=== PATIENT | male | born 1940 | race Caucasian/White ===

== ENCOUNTER → 2018-10-05 09:01 | Outpatient (CLI) | payer MEDICARE, OTHER, SELFPAY ==
[2018-10-07 13:32] LABS: Free Kappa Light Chain 18.3 mg/L (3.3-19.4); Free Kappa/ Lambda Ratio 1.16 (0.26-1.65); Free Lambda 15.8 mg/L (5.7-26.3)
[2018-10-08 21:25] LABS: Alpha 1 Globulin 0.2 g/dL (0.2-0.3); Alpha 2 Globulin 0.8 g/dL (0.5-0.9); Beta 1 Globulin 0.5 g/dL (0.4-0.6)
== END ==
PROVIDERS: Family Provider Family Medicine; PCP Family Medicine; Visit Provider Internal Medicine Cardiovascular Disease
DX: Z86.79 Personal history of other diseases of the circulatory system (principal); I51.7 Cardiomegaly
CPT/HCPCS: 36415; 83883; 84155; 84165

== ENCOUNTER 2019-06-03 23:03 | Observation (INO) | payer MEDICARE, OTHER, SELFPAY ==
[2019-06-03 23:30] VITALS: BP 156/65; PULSE 54; RESP 16; TEMP 36.3; O2SAT 99; BMI 33.7
[2019-06-04] VITALS (18 sets, daily range): BP systolic 112–146; BP diastolic 45–64; PULSE 48–75; RESP 9–18; TEMP 36.4–37.2; O2SAT 89–96; BMI 33.7
--- NOTE | 2019-06-04 | PATH_ITS ---
[facility] Accession Number: [id number] . 01 Material submitted: . gallbladder - GALLBLADDER AND CONTENTS . 01 Clinical history: . ABDOMINAL PAIN . 02 Diagnosis: Gallbladder, Cholecystectomy: Active cholecystitis with cholelithiasis. Negative for dysplasia and malignancy. [facility] 06/08/2019 1034 Local . 02 Electronically signed: . Krystina Rich MD, Pathologist NPI- [id number] . 01 Gross description: . Received in formalin, labeled gallbladder and contents, is an opened gallbladder (length-8.2 cm, diameter-3.8 cm) with marcos-green smooth shiny serosa and a patent cystic duct. No lymph nodes are identified. The lumen contains brown-green watery bile and a dark green, gritty, friable calculus (0.7 x 0.6 0.4 cm). The mucosa is green, smooth, and flat. The wall is up to 0.1 cm thick. No nodules, masses, or lesions are identified. Section Code: (A1) cystic duct resection margin and two serial sections from the body; (A2) two longitudinal sections from the fundus. ([id number]) /[facility] 06/07/2019 1208 Local . 02 Pathologist provided ICD-10: K81.0, K80.60 . 02 CPT . 901617 Performed at: 01 [facility] [address], [place], [place] [id number] MD Garth Lomax MD Phone: [phone] [facility]formed at: [facility] [address] [place], [place] [id number] MD Krystina Rich MD Phone: [phone]
--- NOTE | 2019-06-04 00:30 | ED_ITS ---
HPI - Abdominal Pain General Chief Complaint: Abdominal Pain Stated Complaint: abdominal pain Time Seen by Provider: 06/04/19 00:30 Source: patient and family Mode of arrival: Ambulatory Limitations: no limitations History of Present Illness HPI narrative: [age] year year old male nonsmoker with history of hy pertension presents with a chief complaint of a relatively sudden onset epigastric discomfort this evening at just before 8:00 p.m.. He had eaten about 1 hour before. He states his pain largely stays in the mid to upper abdomen and is worsened with motion and improves with rest. He has nausea but denies any vomiting. Patient denies any history of the same. He denies any recent injury. He has had no trouble with urination. MD complaint: abdominal pain Onset (ago): hour(s) Pain Consistency: constant Location: diffuse Severity: moderate Quality: cramping and aching Relieving factors: rest Exacerbating factors: movement Associated symptoms: nausea Related Data Home Medications Medication Instructions Recorded Confirmed [centrum silver] 1 tab PO Q DAY #0 08/11/12 aspirin 162 mg PO QDAY #0 08/11/12 atorvastatin [Lipitor] 10 mg PO HS #0 08/11/12 cimetidine 400 mg PO BID #0 08/11/12 omeprazole 40 mg PO QDAY #0 08/11/12 sildenafil [Viagra] 50 mg PO PRN #0 08/11/12 tadalafil [Cialis] 20 mg PO PRN #0 08/11/12 telmisartan [Micardis] 80 mg PO Q DAY #0 08/11/12 Allergies Allergy/AdvReac Type Severity Reaction Status Date / Time No Known Drug Allergies Allergy Verified 06/03/19 23:36 Review of Systems Constitutional Constitutional: Denies chills, Denies fatigue, Denies fever(s), Denies frequent falls, Denies lethargy and Denies weakness Eyes Eyes: Denies change in vision, Denies eye discharge, Denies irritation and Denies loss of vision ENT Ears, Nose, Mouth, and Throat: Denies change in voice, Denies dizziness, Denies neck pain, Denies sore throat and Denies throat swelling Cardiovascular Cardiovascular: Denies chest pain, Denies irregular heart rhythm, Denies lightheadedness, Denies palpitations, Denies dyspnea, Denies dyspnea on exertion and Denies orthopnea Respiratory Respiratory: Denies cough, Denies dyspnea, Denies dyspnea on exertion and Denies wheezing Gastrointestinal Gastrointestinal: Reports abdominal pain, Denies change in bowel habits, Denies diarrhea, Reports nausea and Denies vomiting Genitourinary Genitourinary: Denies hematuria, Denies flank pain, Denies urinary incontinence and Denies urinary urgency Musculoskeletal Musculoskeletal: Denies back pain, Denies muscle weakness, Denies neck pain, Denies numbness and Denies tingling Integumentary/Breasts Skin/Breast: Denies pruritus, Denies erythema, Denies rash and Denies wounds Neurologic Neurologic: Denies behavioral changes, Denies confusion, Denies dizziness, Denies frequent falls, Denies loss of vision, Denies numbness, Denies tingling and Denies weakness Psychiatric Psychiatric: Denies anxiety, Denies behavioral changes, Denies confusion, Denies depression, Denies homicidal ideation and Denies suicidal ideation Endocrine Endocrine: Denies fatigue, Denies flushing and Denies palpitations Hematologic/Lymphatic Hematologic/Lymphatic: Denies easy bruising Allergic/Immunologic Allergic/Immunologic: Denies urticaria, Denies throat swelling and Denies wheezing Patient History Social History Smoking Status: Never smoker Smoking Status: Never smoker alcohol intake frequency: 0-2 drinks per day Substance Use Type: does not use Exam Narrative Exam Narrative: GENERAL: [79] year old patient appears stated age. Well- nourished, well-developed patient, in mild distress. HEAD: Atraumatic. Normocephalic. EYES: Pupils equal round and reactive. Extraocular motions intact. No scleral icterus. No injection or drainage. ENT: Nose without bleeding, purulent drainage. Throat without erythema, tonsillar hypertrophy or exudate. Airway patent. NECK: Trachea midline. Non tender CARDIOVASCULAR: Regular rate and rhythm without murmurs, gallops, or rubs. RESPIRATORY: Clear to auscultation. Breath sounds equal bilaterally. No wheezes, rales, or rhonchi. GASTROINTESTINAL: Abdomen soft, tender in the periumbilical and epigastric region, nondistended. EXTREMITIES: No edema or joint tenderness. BACK: Nontender without deformity or crepitance. No flank tenderness. NEURO: AOx3. SKIN: No rash or erythema of visible areas Initial Vital Signs Initial Vital Signs: Vital Signs Temperature 97.3 F L 06/03/19 23:30 Pulse Rate 54 L 06/03/19 23:30 Respiratory Rate 16 06/03/19 23:30 Blood Pressure 156/65 H 06/03/19 23:30 Pulse Oximetry 99 06/03/19 23:30 Course Orders Ordered: ED Orders 06/04/19 00:27 EKG-12 Lead Stat 06/04/19 00:38 XR acute abdomen series Stat 06/04/19 01:27 CT abdomen pelvis w con Stat 06/04/19 01:45 Complete Blood Count AUTO DIFF Stat Comprehensive Metabolic Panel Stat Lipase Stat Partial Thromboplastin Time Stat Prothrombin Time INR Stat 06/04/19 03:37 US abdomen limited Stat Ondansetron HCl (Zofran) 4 mg IV Q4HR PRN PRN Reason: Nausea And Vomiting Last Admin: 06/04/19 04:21 Dose: 4 mg Documented by: Admin: 06/04/19 02:51 Dose: 4 mg Documented by: LORENZO Discontinued Medications Hydromorphone HCl (Dilaudid) 0.5 mg IV NOW ONE Stop: 06/04/19 02:47 Last Admin: 06/04/19 02:51 Dose: 0.5 mg Documented by: LORENZO Hydromorphone HCl (Dilaudid) 0.5 mg IV NOW ONE Stop: 06/04/19 04:15 Last Admin: 06/04/19 04:21 Dose: 0.5 mg Documented by: WENDY Vital Signs Vital signs: Vital Signs - 8 hr 06/03/19 23:30 06/04/19 03:00 Temperature 97.3 F L Pulse Rate 54 L 50 L Respiratory Rate 16 18 Blood Pressure 156/65 H Blood Pressure [Left Arm] 132/60 Pulse Oximetry 99 95 MDM - Abdominal Pain Lab Data Result diagrams: 06/04/19 01:45 06/04/19 01:45 Labs: Lab Results 06/04/19 06/04/19 06/04/19 Range/Units 01:45 01:45 01:45 WBC 12.8 H (4.5-11.0) X10^3/uL RBC 4.74 (4.5-5.9) X10^6/uL Hgb 13.8 (13.5-17.5) g/dL Hct 41.1 (41-53) % MCV 86.7 (80-100) fL MCH 29.2 (26-34) PG MCHC 33.7 (30-36) % RDW 13.7 (11.6-14.8) % Plt Count 155 (150-400) X10^3/uL Neut % (Auto) 87.6 H (50-75) % Lymph % (Auto) 6.4 L (25-40) % [place] % (Auto) 5.4 (3-14) % Eos % (Auto) 0.1 L (2-4) % Baso % (Auto) 0.5 (0-2) % Neut # (Auto) 61244 H (6722-7680) /uL Lymph # (Auto) 800 L (9972-1443) /uL [place] # (Auto) 700 (0-900) /uL Eos # (Auto) 0 (0-450) /uL Baso # (Auto) 100 (0-100) /uL PT 11.7 (10.1-12.7) SECONDS INR 1.0 (0.9-1.3) APTT 34 (26.4-36.2) SECONDS Sodium 140 (137-145) mmol/L Potassium 4.3 (3.4-5.1) mmol/L Chloride 103 (98-107) mmol/L Carbon Dioxide 27 (22-32) mmol/L BUN 27 H (9-20) mg/dL Creatinine 0.90 (0.66-1.25) mg/dL Estimated GFR > 60.0 (>60) mL/min BUN/Creatinine Ratio 30.0 H (6-22) Glucose 178 H (80-110) mg/dL Calcium 9.5 (8.4-10.2) mg/dL Total Bilirubin 0.8 (0.2-1.3) mg/dL AST 299 H (17-59) IU/L ALT 121 H (<50) IU/L Alkaline Phosphatase 95 (38-126) U/L Total Protein 7.6 (6.3-8.2) g/dL Albumin 4.3 (3.5-5.0) g/dL Globulin 3.3 (1.7-4.1) g/dL Albumin/Globulin Ratio 1.3 (1.0-2.8) Lipase 108 (23-300) U/L Imaging Data Abdominal x-ray: Attestation: I personally reviewed and interpreted this imaging study as follows: My Impression: Nonobstructive CT scan - abdomen/pelvis: Radiologist's Impression: GB neck stone US - abdomen: Radiologist's Impression: stone in neck of GB, no thickened wall or sludge Discharge Plan Departure Patient Disposition: Admitted As Inpatient Clinical Impression: Gall stone Admit Date/Time: 06/04/19 04:15 Admit Provider: Bob Younger
--- NOTE | 2019-06-04 00:38 | DI.RAD.S_ITS ---
PROCEDURE: XR ACUTE ABDOMEN SERIES INDICATIONS: Abdominal pain TECHNIQUE: One view chest and two views of the abdomen were acquired. COMPARISON: [facility], CT, CT ABDOMEN PELVIS W CON, 06/04/2019, 2:16. [facility], CR, CHEST 1 VIEW, 08/10/2012, 19:53. FINDINGS: Surgical changes and devices: None. Chest: Lungs are clear. Heart size is normal. No pleural effusions. No pneumoperitoneum. Abdomen: Bowel gas pattern is normal. No suspicious calcifications. Visualized solid organ contours appear normal. Bones: No suspicious bony lesions. S-shaped scoliotic curvature is seen. Age-appropriate bony degenerative changes are seen. IMPRESSION: A nonobstructive bowel gas pattern is seen. Note: No significant discrepancy from the preliminary report. Dictated by: Palmer Ludwig M.D. on 06/04/2019 at 9:16 Approved by: Palmer Ludwig M.D. on 06/04/2019 at 9:17
--- NOTE | 2019-06-04 01:27 | DI.CT.S_ITS ---
PROCEDURE: CT ABDOMEN PELVIS W CON INDICATIONS: severe abdominal pain TECHNIQUE: After the administration of intravenous contrast, 5 mm thick sections acquired from the diaphragm to the symphysis. 5 mm coronal and sagittal reformats were acquired. For radiation dose reduction, the following was used: automated exposure control, adjustment of mA and/or kV according to patient size. COMPARISON: [facility], CR, XR ACUTE ABDOMEN SERIES, 06/04/2019, 0:41. [facility], US, US ABDOMEN LIMITED, 06/04/2019, 3:45. FINDINGS: Image quality: Excellent. ABDOMEN: Lung bases: Lung bases are clear. Heart size is normal. There is a moderate hiatal hernia. Solid organs: Liver is normal in size and enhancement. Low-density liver lesions are seen, which are likely related to cysts or hemangiomas. Gallbladder demonstrates a gallstone within its neck, as on series 2 image 21. Biliary system is non dilated. Pancreas enhances normally. Spleen is normal in size and enhancement. Incidental note is made of an accessory spleen along the anterior aspect of the primary spleen. No adrenal nodules. Kidneys demonstrate normal size and enhancement, without hydronephrosis. There is a water density right mid kidney cyst that measures 4 cm. Peritoneum and bowel: Bowel loops demonstrate normal wall thickness and caliber. No free fluid or air. Nodes and vessels: No retroperitoneal or mesenteric adenopathy by size criteria. Aorta and inferior vena cava are normal in size. Miscellaneous: No ventral hernias. PELVIS: Genitourinary: Bladder wall thickness is normal. Miscellaneous: No inguinal hernias or adenopathy. Bones: No suspicious bony lesions. No vertebral body compression fractures. Mild levoconvex scoliotic curvature is noted. Age-appropriate bony degenerative changes are seen. IMPRESSION: There is a stone seen within the gallbladder neck. Incidental note is made of: Moderate hiatal hernia Simple appearing right renal cyst Likely liver cysts or hemangiomas Levoconvex scoliotic curvature Note: No significant discrepancy from the preliminary report. Dictated by: Palmer Ludwig M.D. on 06/04/2019 at 8:56 Transcribed by: DEYSI on 06/04/2019 at 9:02 Approved by: Palmer Ludwig M.D. on 06/04/2019 at 9:36
[2019-06-04 02:04] LABS: Add Manual Diff / Slide Review NO; Basophils Absolute Auto 100 /uL (0-100); Basophils Percent Auto 0.5 % (0-2); Eosinophils Absolute Auto 0 /uL (0-450); Eosinophils Percent Auto 0.1 % (2-4); Hematocrit 41.1 % (41-53); Hemoglobin 13.8 g/dL (13.5-17.5); Lymphocytes Absolute Auto 800 /uL (1100-4500); Lymphocytes Percent Auto 6.4 % (25-40); Mean Corpuscular HGB Conc 33.7 % (30-36); Mean Corpuscular Hemoglobin 29.2 PG (26-34); Mean Corpuscular Volume 86.7 fL (80-100); Monocytes Absolute Auto 700 /uL (0-900); Monocytes Percent Auto 5.4 % (3-14); Neutrophils Absolute Auto 11200 /uL (1500-7000); Neutrophils Percent Auto 87.6 % (50-75); Platelet Count 155 X10^3/uL (150-400); Red Blood Cell Count 4.74 X10^6/uL (4.5-5.9); Red Cell Distribution Width 13.7 % (11.6-14.8); White Blood Cell Count 12.8 X10^3/uL (4.5-11.0)
[2019-06-04 02:06] LABS: Prothrombin Time 11.7 SECONDS (10.1-12.7)
[2019-06-04 02:09] LABS: Alanine Aminotransferase 121 IU/L (<50); Albumin 4.3 g/dL (3.5-5.0); Albumin Globulin Ratio 1.3 (1.0-2.8); Alkaline Phosphatase 95 U/L (38-126); Aspartate Aminotransferase 299 IU/L (17-59); Bilirubin Total 0.8 mg/dL (0.2-1.3); Blood Urea Nitrogen 27 mg/dL (9-20); Calcium 9.5 mg/dL (8.4-10.2); Carbon Dioxide 27 mmol/L (22-32); Chloride 103 mmol/L (98-107); Estimated Glomerular Filt Rate > 60.0 mL/min (>60); Globulin 3.3 g/dL (1.7-4.1); Glucose 178 mg/dL (80-110); HEMOLYSIS < 15 (0-50); Lipase 108 U/L (23-300); PTT Partial Thromboplastin Tim 34 SECONDS (26.4-36.2); Potassium 4.3 mmol/L (3.4-5.1); Sodium 140 mmol/L (137-145); Total Protein 7.6 g/dL (6.3-8.2)
[2019-06-04] MEDS: HYDROMORPHONE 0.5 MG INJ IV ×2 (02:51→04:21)
[2019-06-04] MEDS: ONDANSETRON 4 MG/2 ML INJ IV ×2 (02:51→04:21)
--- NOTE | 2019-06-04 03:37 | DI.US.S_ITS ---
PROCEDURE: US ABDOMEN LIMITED INDICATIONS: RIGHT UPPER QUADRANT PAIN TECHNIQUE: Real-time focused scanning was performed of the abdomen, with image documentation. COMPARISON: [facility], CR, XR ACUTE ABDOMEN SERIES, 06/04/2019, 0:41. [facility], CT, CT ABDOMEN PELVIS W CON, 06/04/2019, 2:16. FINDINGS: The liver is normal in size and demonstrates no focal lesions. The liver is not well-seen, secondary to overlying bowel gas. There is a 1 cm stone seen lodged within the gallbladder neck. The gallbladder wall is not thickened, measuring 3 mm or less. No specific pericholecystic fluid is seen. The sonographic Howard sign is negative. There is no biliary dilatation, the common bile duct measures 5 mm. The pancreas is not seen. IMPRESSION: There is a 1 cm stone seen lodged gallbladder neck. No additional sonographic signs of cholecystitis are seen. No biliary dilatation. Note: No significant discrepancy from the preliminary report. Dictated by: Palmer Ludwig M.D. on 06/04/2019 at 9:37 Approved by: Palmer Ludwig M.D. on 06/04/2019 at 9:39
[2019-06-04 04:45] LABS: Bacteria Urine None Seen; RBC Urine None Seen (0-5/HPF); WBC Urine None Seen (0-5/HPF)
[2019-06-04 04:56] LABS: Bilirubin Urine UA NEGATIVE (NEGATIVE); Color Urine UA YELLOW; Glucose Urine UA TRACE g/dL (Negative); Ketones Urine UA TRACE (NEGATIVE); Leukocyte Esterase Urine UA NEGATIVE (NEGATIVE); Nitrite Urine UA NEGATIVE (Negative); Occult Blood Urine UA TRACE-INTACT (Negative); Protein Urine UA NEGATIVE (Negative); Specific Gravity Urine UA 1.025 (1.000-1.035); Urobilinogen Urine UA 0.2 E.U./dL (0.2)
[2019-06-04] MEDS: CEFOTETAN 1 GM/50 ML PIGGYBACK IV (05:00)
[2019-06-04] MEDS: SODIUM CHLORIDE 0.9% 1,000 ML 125 ML IV (05:01)
[2019-06-04 05:18] LABS: Appearance Urine UA CLOUDY
[2019-06-04 05:19] LABS: Amorphous Sediment Urine 4+
[2019-06-04 05:20] LABS: Culture Indicated Urine Cult Not Indicated
--- NOTE | 2019-06-04 06:44 | PC.NURSE ---
Pt to room 206 via stretcher from ER. Pt able to transfer to bed independently. S.O. Ly at the bedside. Pt denies pain or nausea at this time. Pt oriented to room, call light, bed controls and tv controls. Admission done. IVF infusing as ordered. Pt denies needs at this time.
[2019-06-04] MEDS: LACTATED RINGERS 1,000 ML 42 ML IV (09:00)
--- NOTE | 2019-06-04 09:02 | P.HP_ITS ---
History of Present Illness History of Present Illness Date Patient Seen: 06/04/19 Time Patient Seen: 09:02 Chief complaint: abdominal pain Patient History Medical History (Updated 06/04/19 @ 05:45 by Yoanna Baeza RN) Acid reflux (Acute) Cataract (Acute) Hiatal hernia (Acute) High blood pressure (Acute) High cholesterol (Acute) Sleep apnea (Acute) Squamous cell carcinoma (Acute) Surgical History (Updated 06/04/19 @ 05:45 by Yoanna Baeza RN) History of sinus surgery (Acute) History of uvulopalatopharyngoplasty (Acute) Family & Social History Social History: household members significant other Prior Living Arrangements House Safety & Behavioral: Feels Safe in Current Yes Environment Been Physically Hurt or No Threatened By a Person Suicidal Ideation Description None Suicide Plan Description No Plan Tobacco & Substance use: Smoking Status Never smoker alcohol intake current alcohol intake frequency 0-2 drinks per day Substance Use Type does not use Meds Home Medications and Allergies Home Medications Medication Instructions Recorded Confirmed Type [centrum silver] 1 tab PO Q DAY #0 08/11/12 06/04/19 History aspirin 81 mg PO BID #0 08/11/12 06/04/19 History atorvastatin [Lipitor] 10 mg PO HS #0 08/11/12 06/04/19 History cimetidine 400 mg PO BID #0 08/11/12 06/04/19 History omeprazole 40 mg PO QDAY #0 08/11/12 06/04/19 History telmisartan [Micardis] 80 mg PO Q DAY #0 08/11/12 06/04/19 History amlodipine [Norvasc] 2.5 mg PO DAILY 06/04/19 06/04/19 History cholecalciferol (vitamin D3) 2,000 unit PO DAILY 06/04/19 06/04/19 History [Vitamin D3] Allergies Allergy/AdvReac Type Severity Reaction Status Date / Time No Known Drug Allergies Allergy Verified 06/03/19 23:36 Exam Vital Signs (past 8 hours): - 06/04/19 03:00 06/04/19 04:50 Temperature 97.6 F Pulse Rate 50 L 57 L Respiratory Rate 18 18 Blood Pressure 141/58 H Blood Pressure [Left Arm] 132/60 Pulse Oximetry 95 94 Oxygen Delivery Method Room Air Oxygen Flow Rate 0 Objective Labs Result Diagrams: 06/04/19 01:45 06/04/19 01:45 Labs: Laboratory Results - last 24 hr 06/04/19 06/04/19 06/04/19 01:45 01:45 01:45 WBC 12.8 H RBC 4.74 Hgb 13.8 Hct 41.1 MCV 86.7 MCH 29.2 MCHC 33.7 RDW 13.7 Plt Count 155 Neut % (Auto) 87.6 H Lymph % (Auto) 6.4 L [place] % (Auto) 5.4 Eos % (Auto) 0.1 L Baso % (Auto) 0.5 Neut # (Auto) 77731 H Lymph # (Auto) 800 L [place] # (Auto) 700 Eos # (Auto) 0 Baso # (Auto) 100 PT 11.7 INR 1.0 APTT 34 Sodium 140 Potassium 4.3 Chloride 103 Carbon Dioxide 27 BUN 27 H Creatinine 0.90 Estimated GFR > 60.0 BUN/Creatinine Ratio 30.0 H Glucose 178 H Calcium 9.5 Total Bilirubin 0.8 AST 299 H ALT 121 H Alkaline Phosphatase 95 Total Protein 7.6 Albumin 4.3 Globulin 3.3 Albumin/Globulin Ratio 1.3 Lipase 108 Urine Color Urine Appearance Urine pH Ur Specific [place] Urine Protein Urine Glucose (UA) Urine Ketones Urine Occult Blood Urine Nitrate Urine Bilirubin Urine Urobilinogen Ur Leukocyte Esterase Urine RBC Urine WBC Amorphous Sediment Urine Bacteria Ur Culture Indicated? 06/04/19 02:45 WBC RBC Hgb Hct MCV MCH MCHC RDW Plt Count Neut % (Auto) Lymph % (Auto) [place] % (Auto) Eos % (Auto) Baso % (Auto) Neut # (Auto) Lymph # (Auto) [place] # (Auto) Eos # (Auto) Baso # (Auto) PT INR APTT Sodium Potassium Chloride Carbon Dioxide BUN Creatinine Estimated GFR BUN/Creatinine Ratio Glucose Calcium Total Bilirubin AST ALT Alkaline Phosphatase Total Protein Albumin Globulin Albumin/Globulin Ratio Lipase Urine Color Yellow Urine Appearance Cloudy Urine pH 5.0 Ur Specific [place] 1.025 Urine Protein Negative Urine Glucose (UA) Trace H Urine Ketones Trace H Urine Occult Blood Trace-intact Urine Nitrate Negative Urine Bilirubin Negative Urine Urobilinogen 0.2 Ur Leukocyte Esterase Negative Urine RBC None seen Urine WBC None seen Amorphous Sediment 4+ Urine Bacteria None seen Ur Culture Indicated? Cult not indicated Quality VTE Deep Vein Thrombosis/Pulmonary Embolism Present on Admission: No
--- NOTE | 2019-06-04 09:03 | P.HP_ITS ---
History of Present Illness History of Present Illness Date Patient Seen: 06/04/19 Time Patient Seen: 09:03 Chief complaint: abdominal pain Narrative: 79-year-old white male with sudden onset upper abdominal pain last night. has had no prior experience like that. He does have a history of hiatal hernia but no other abdominal problems. He also has a history of hypertension. Patient came to the emergency department where a CT scan confirms a a gallstone stuck in the neck of the gallbladder. There is no wall thickening or pericholecystic fluid. He does have a slight elevation of his white count. Bilirubin and alk-phos are normal. He has mild elevation of transaminase enzymes. Lipase is normal. Patient History Medical History Acid reflux (Acute) Cataract (Acute) Hiatal hernia (Acute) High blood pressure (Acute) High cholesterol (Acute) Sleep apnea (Acute) Squamous cell carcinoma (Acute) Surgical History History of sinus surgery (Acute) History of uvulopalatopharyngoplasty (Acute) Family & Social History Social History: household members significant other Prior Living Arrangements House Safety & Behavioral: Feels Safe in Current Yes Environment Been Physically Hurt or No Threatened By a Person Suicidal Ideation Description None Suicide Plan Description No Plan Tobacco & Substance use: Smoking Status Never smoker alcohol intake current alcohol intake frequency 0-2 drinks per day Substance Use Type does not use Meds Home Medications and Allergies Home Medications Medication Instructions Recorded Confirmed Type [centrum silver] 1 tab PO Q DAY #0 08/11/12 06/04/19 History aspirin 81 mg PO BID #0 08/11/12 06/04/19 History atorvastatin [Lipitor] 10 mg PO HS #0 08/11/12 06/04/19 History cimetidine 400 mg PO BID #0 08/11/12 06/04/19 History omeprazole 40 mg PO QDAY #0 08/11/12 06/04/19 History telmisartan [Micardis] 80 mg PO Q DAY #0 08/11/12 06/04/19 History amlodipine [Norvasc] 2.5 mg PO DAILY 06/04/19 06/04/19 History cholecalciferol (vitamin D3) 2,000 unit PO DAILY 06/04/19 06/04/19 History [Vitamin D3] Allergies Allergy/AdvReac Type Severity Reaction Status Date / Time No Known Drug Allergies Allergy Verified 06/03/19 23:36 Review of Systems Review of Systems ROS: Yes All systems reviewed with the patient and are negative except as ot herwise documented Exam Vital Signs (past 8 hours): - 06/04/19 03:00 06/04/19 04:50 Temperature 97.6 F Pulse Rate 50 L 57 L Respiratory Rate 18 18 Blood Pressure 141/58 H Blood Pressure [Left Arm] 132/60 Pulse Oximetry 95 94 Oxygen Delivery Method Room Air Oxygen Flow Rate 0 Narrative Exam Narrative: Patient is afebrile alert and oriented. Lungs are clear with no rales or wheezes Heart regular rhythm no murmur Abdomen is slightly distended with moderate right subcostal tenderness. No mass palpable. Remaining physicals unremarkable. Neurologic intact. Objective Labs Result Diagrams: 06/04/19 01:45 06/04/19 01:45 Labs: Laboratory Results - last 24 hr 06/04/19 06/04/19 06/04/19 01:45 01:45 01:45 WBC 12.8 H RBC 4.74 Hgb 13.8 Hct 41.1 MCV 86.7 MCH 29.2 MCHC 33.7 RDW 13.7 Plt Count 155 Neut % (Auto) 87.6 H Lymph % (Auto) 6.4 L [place] % (Auto) 5.4 Eos % (Auto) 0.1 L Baso % (Auto) 0.5 Neut # (Auto) 66370 H Lymph # (Auto) 800 L [place] # (Auto) 700 Eos # (Auto) 0 Baso # (Auto) 100 PT 11.7 INR 1.0 APTT 34 Sodium 140 Potassium 4.3 Chloride 103 Carbon Dioxide 27 BUN 27 H Creatinine 0.90 Estimated GFR > 60.0 BUN/Creatinine Ratio 30.0 H Glucose 178 H Calcium 9.5 Total Bilirubin 0.8 AST 299 H ALT 121 H Alkaline Phosphatase 95 Total Protein 7.6 Albumin 4.3 Globulin 3.3 Albumin/Globulin Ratio 1.3 Lipase 108 Urine Color Urine Appearance Urine pH Ur Specific [place] Urine Protein Urine Glucose (UA) Urine Ketones Urine Occult Blood Urine Nitrate Urine Bilirubin Urine Urobilinogen Ur Leukocyte Esterase Urine RBC Urine WBC Amorphous Sediment Urine Bacteria Ur Culture Indicated? 02/16/20 02:45 WBC RBC Hgb Hct MCV MCH MCHC RDW Plt Count Neut % (Auto) Lymph % (Auto) [place] % (Auto) Eos % (Auto) Baso % (Auto) Neut # (Auto) Lymph # (Auto) [place] # (Auto) Eos # (Auto) Baso # (Auto) PT INR APTT Sodium Potassium Chloride Carbon Dioxide BUN Creatinine Estimated GFR BUN/Creatinine Ratio Glucose Calcium Total Bilirubin AST ALT Alkaline Phosphatase Total Protein Albumin Globulin Albumin/Globulin Ratio Lipase Urine Color Yellow Urine Appearance Cloudy Urine pH 5.0 Ur Specific [place] 1.025 Urine Protein Negative Urine Glucose (UA) Trace H Urine Ketones Trace H Urine Occult Blood Trace-intact Urine Nitrate Negative Urine Bilirubin Negative Urine Urobilinogen 0.2 Ur Leukocyte Esterase Negative Urine RBC None seen Urine WBC None seen Amorphous Sediment 4+ Urine Bacteria None seen Ur Culture Indicated? Cult not indicated Assessment & Plan Assessment & Plan narrative: Patient with an impacted stone in the neck of the gallbladder. I have explained the situation to the patient and his family in have recommended laparoscopic cholecystectomy. The patient agrees with no unanswered questions. Quality VTE Deep Vein Thrombosis/Pulmonary Embolism Present on Admission: No
--- NOTE | 2019-06-04 09:47 | SUR.OPER ---
Supine on padded OR bed, head on pillow, safety belt at thigh, left arm padded and tucked at side. Right arm secured on padded arm oard <90 degrees abduction. Legs uncrossed. Padded footboard in place. Tape over blanket to secure lower legs.
[2019-06-04] MEDS: BUPIVACAINE 0.5% W/ EPI (PF) 10 ML VIAL 30 ML INJ (09:58)
--- NOTE | 2019-06-04 10:13 | PC.NURSE ---
Addendum entered by Nydia Pichardo R.N. 06/04/19 12:18: POST OP ARRIVAL 1115 - arrived from [facility], drowsy, states no pain or nausea, abd soft w/telfa over abd puncture sites x4 cdi, ra 88% on arrival, placed on 2l to 96%, when visitors arrived and more alert, 02 removed and sat maintained, 93%, started on clear liq. Original Note: AM MOTE - pt is alert, states pain and nausearesolved in ER after admin dilaudid and zofran, bt hypo, abd soft, hr 50, ra 96%, npo status confirmed, Dr. Younger and anes in, consent signed, anes aware pt medications, last abx, hr, bp, iv saline locked, hearing aids in container at bedside, taken via bed to pacu.
--- NOTE | 2019-06-04 10:27 | PM.OP.1 ---
Operative Date/Time/Diagnoses Date of procedure: 06/04/19 Time of procedure: 10:27 Pre-op diagnosis: Acute cholecystitis with cholelithiasis Post-op diagnosis: same Procedure & Clinicians Procedure: Laparoscopic cholecystectomy Same procedure as scheduled: Yes Indications: Acute cholecystitis with impacted gallbladder neck stone Surgeon: Bob Younger Click Yes if Unassisted: Yes Anesthesia Type: General Operative Notes Findings: Severe acute cholecystitis with cholelithiasis stone impacted in the neck of the gallbladder acute and chronic inflammatory changes surrounding the gallbladder Closure Type: primary Specimen(s): other (Gallbladder and contents) Estimated Blood Loss (mL): 50 Blood products transfused: none Procedure in detail: The patient was properly identified during surgical pause prepped and draped in a sterile fashion exposure of the upper abdomen under general endotracheal anesthesia. 5 mm incision is made to the right of the umbilicus. Using an optical direct viewing port entry into the peritoneal cavity was achieved under direct vision with no visceral injuries. A pneumoperitoneum was safely established. Three additional right subcostal ports were placed under direct vision. Gallbladder was found to be imbedded in dense adhesions from the omentum to the liver edge. This required dissection sharply and bluntly to even identify the gallbladder. Once identify the gallbladder was elevated toward the patient's right shoulder. Numerous additional adhesions around the neck of the gallbladder were taken down bluntly. Gallbladder was then further elevated. The cholecystoduodenal ligament dissected down to the critical view of Calot's triangle showing cystic duct cystic artery and Calot's node which was quite inflamed. Cystic duct closed with multiple clips divided leaving several with the patient there was no bile leak. Cystic artery closed with multiple clips divided leaving several with the patient and there was no bleeding. Once this was done the gallbladder was able to be elevated further toward the patient's right shoulder and using and the Bovie electric cautery I was able to dissect the gallbladder away from the liver of bed with meticulous hemostasis. The gallbladder and its contents were removed through the epigastric port. operative site irrigated with a L of sterile saline aspirated dry there is no bleeding and no bile leak. Trocars removed under direct vision there was no bleeding. The skin was stapled. Sterile dressings applied he tolerated the procedure very well. Complications: none Post-operative Condition: stable Disposition: PACU
[2019-06-04] MEDS: CEFOTETAN 2 GM/50 ML PIGGYBACK IV ×2 (10:53→21:48)
[2019-06-04] MEDS: DEXTROSE 5%-0.45% NS 1,000 ML 75 ML IV (11:29)
[2019-06-04] MEDS: raNITIdine 150 MG CAPSULE PO ×2 (13:07→20:34)
[2019-06-04] MEDS: GABAPENTIN 300 MG CAPSULE PO ×2 (13:07→20:34)
[2019-06-04] MEDS: SIMETHICONE 80 MG TABLET PO ×3 (13:07→20:34)
--- NOTE | 2019-06-04 15:07 | CM.DANOTE ---
Patient is a 79 year old male who was admitted today on 06/04/19 for Abd Pain. Pt has [employer] and [employer] for insurance and his PCP is Dr. Rico Wyman. EMR was reviewed. Per Surgeon, to signed consents for surgical intervention today for froilan. Pt was off the floor for most of the day in surgery and per RN pt now back to the room and was having some pain and nausea but seems to be better controlled now and is off NC oxygen and started on clear liquids. Pt has some supportive people bedside and quite drowsy. Plan: SW to follow for bedside assessment with pt in the morning to determine if he was able to tolerate clear liquids overnight and to determine if any d/c planning needs identified. BEATRIZ Leija Discharge Planning/Care Management Advanced directive, confirm from FAMILY Start: 06/04/19 05:26 Freq: Q24H Status: Active Protocol: Document 06/04/19 05:28 CM (Rec: 06/04/19 05:28 CM [id number]) Advance Directive, confirm on record Time 05:28 Person contacted Pt and Spouse Copy received No CM Discharge Assessment Start: 06/04/19 15:05 Freq: Status: Active Protocol: Document 06/04/19 15:05 BF (Rec: 06/04/19 15:07 BF [id number]) Discharge Planning Assessment Assigned Manager Revenue BEATRIZ Arias Advance Directives? Yes Advance Directives on File No History Provided By Patient,Significant Other, Medical Record Has Patient been admitted in last 30 No days? Prior Living Arrangements House Household Members significant other Independent with ADL's Yes Is patient alert and oriented? Yes Caregiver for Another No Comment Waiting to see how pt tolerates advancing diet Barriers to Discharge No Discharge Plan Home Transportation Arrangement Supportive family/friends bedside who can provide transport at d/c. Review Status In Process Please Provide Date Initial DC 06/04/19 Assessment Was Performed Next Review Type Continued Stay Review
[2019-06-04] MEDS: ATORVASTATIN 10 MG TABLET PO (20:34)
[2019-06-04] MEDS: ACETAMINOPHEN 325 MG TABLET 650 MG PO (22:13)
[2019-06-05] VITALS (8 sets, daily range): BP systolic 130–149; BP diastolic 52–66; PULSE 47–49; RESP 16–20; TEMP 36.4–37.2; O2SAT 92–97
[2019-06-05] MEDS: DEXTROSE 5%-0.45% NS 1,000 ML 75 ML IV ×2 (01:24→14:16)
[2019-06-05] MEDS: AMLODIPINE 2.5 MG TABLET PO (09:03)
[2019-06-05] MEDS: raNITIdine 150 MG CAPSULE PO (09:05)
[2019-06-05] MEDS: ENOXAPARIN 40 MG/0.4 ML SYRINGE SUBCUT (09:05)
[2019-06-05] MEDS: SIMETHICONE 80 MG TABLET PO ×2 (09:05→17:06)
[2019-06-05] MEDS: GABAPENTIN 300 MG CAPSULE PO (11:11)
[2019-06-05] MEDS: CEFOTETAN 2 GM/50 ML PIGGYBACK IV (11:17)
--- NOTE | 2019-06-05 19:42 | PM.DS.1 ---
History of Present Illness History of Present Illness Date Patient Seen: 06/05/19 Time Patient Seen: 19:42 Chief complaint: abdominal pain Narrative: Patient is a gentleman admitted for acute cholecystitis. Discharge Providers Provider Date of admission: 06/04/19 04:15 Discharge Date: 06/05/19 Primary care physician: Rico Wyman MD Consults: 06/04/19 10:20 Consult to Discharge Planning Routine Comment: Discharge provider: Gage Edwards MD Summary Hospital Course Discharge Diagnosis: Acute cholecystitis with cholelithiasis Chronic hypertension Gastroesophageal reflux disease chronic Elevated cholesterol chronic Obesity with BMI of 33.7 Chronic sleep apnea Hospital Course: Patient underwent laparoscopic cholecystectomy. His postoperative course was smooth and he was discharged the following day to follow up in the office Status at Discharge Cognitive/behavioral status at discharge: oriented Functional status at discharge: independent ambulation Overall status at discharge: patient is progressing back to baseline Time Spent with Patient Time spent: Less than 30 minutes Exam Vital Signs (past 8 hours): - 06/05/19 13:00 06/05/19 15:00 06/05/19 15:50 Temperature 98.0 F 98.8 F Pulse Rate 49 L 47 L Respiratory Rate 16 20 Blood Pressure 137/55 L 149/58 H Pulse Oximetry 96 97 97 Oxygen Delivery Method Room Air Oxygen Flow Rate 0 Narrative Exam Narrative: Lungs clear heart regular rate and rhythm abdomen is protuberant soft nontender dressings are intact Objective Labs Result Diagrams: 06/04/19 01:45 06/04/19 01:45 Discharge Plan Discharge Plan Patient Disposition: Home Discharge comment: You doing well. Discharge orders & Medications Prescriptions: New hydrocodone-acetaminophen 5-325 mg tablet See Rx Instructions .ROUTE .COMPLEX PRN (Reason: painful procedure) Qty: 14 RF: 0 Continued telmisartan [Micardis] 80 MG tablet 80 mg PO Q DAY Qty: 0 RF: 0 atorvastatin [Lipitor] 10 MG tablet 10 mg PO HS Qty: 0 RF: 0 cimetidine 400 MG tablet 400 mg PO BID Qty: 0 RF: 0 omeprazole 40 MG capsule,delayed release(DR/EC) 40 mg PO QDAY Qty: 0 RF: 0 aspirin 81 MG tablet,chewable 81 mg PO BID Qty: 0 RF: 0 [centrum silver] 1 tab PO Q DAY Qty: 0 RF: 0 amlodipine [Norvasc] 2.5 mg Tablet 2.5 mg PO DAILY RF: 0 cholecalciferol (vitamin D3) [Vitamin D3] 2,000 unit Tablet 2,000 unit PO DAILY RF: 0 Follow up/Referrals: Rico Wyman MD [Primary Care Provider] - Gage Edwards MD [Physician] - 2 Weeks (Please call my office and make an appointment to see me in about 10-14 days. If you need to reach a doctor please call our office. If his after hours listen to the entire message and at the end you will be connected with the page rope twisting machine operator who will call the doctor on-call) Diet/Activity/Treatments Diet: Diet as Tolerated Activity: Do not lift over 10 lb or strain for the next 4 weeks. You may walk. No pool or tub for 2 weeks. If you develop persistent diarrhea or nausea please call the doctor. Skin/Wound/Dressing Care Report to your healthcare provider any signs of infection, such as:: chills, fever, increased pain, unusual drainage and unusual redness Dressing: You can remove the Band-Aids and shower in 2 days. Visit Report/Discharge Packet Instructions: DI for Cholecystectomy Visit Report Forms: Patient Portal/API, Stroke Signs & Symptoms Discharge Data Primary Care Provider: Rico Wyman Attending Provider: Bob Younger Admit Date/Time: 06/04/19 04:15 Discharges patient from system. Discharge Date/Time: 06/05/19 20:45 Quality VTE Deep Vein Thrombosis/Pulmonary Embolism Present on Admission: No
--- NOTE | 2019-06-05 20:47 | PC.NURSE ---
Discharge Note Patient A&O, VSS per baseline, no complaints of pain/discomfort. All belongings packed and given to patient. Discharge instructions reviewed with patient and script for Holiday given, no questions/concerns. Patient taken down via wheelchair to personal vehicle.
== END 2019-06-05 20:45 | disposition home or self-care (01) ==
LOC: ED 06-04 00:30 → AC 06-04 04:49
PROVIDERS: Admitting Provider Surgery; Emergency Provider Emergency Medicine; Family Provider Family Medicine; PCP Family Medicine; Referring Provider Emergency Medicine; Visit Provider Surgery
PROC: 0FT44ZZ Resection of Gallbladder, Percutaneous Endoscopic Approach (ICD-10-PCS; CPT 47562; principal; 2019-06-04 09:00)
DX: K80.00 Calculus of gallbladder with acute cholecystitis without obstruction (principal); R10.9 Unspecified abdominal pain; I10 Essential (primary) hypertension; G47.33 Obstructive sleep apnea (adult) (pediatric); E78.5 Hyperlipidemia, unspecified; E66.9 Obesity, unspecified; Z68.33 Body mass index [BMI] 33.0-33.9, adult
CPT/HCPCS: 47562; 36415; 74022; 74177; 76705; 80053; 81001; 83690; 85025; 85610; 85730; 93005; 94762; 96361; 96365; 96366; 96375; 96376; 99219; 99284; G0378; J0330; J1100; J1170; J1650; J1885; J2405; J2704; J3010; Q9967

== ENCOUNTER → 2021-05-29 11:54 | Outpatient (CLI) | payer MEDICARE, OTHER, SELFPAY ==
[2019-06-04 05:12] VITALS: BMI 33.7
--- NOTE | 2021-05-29 | DI.RAD.S_ITS ---
PROCEDURE: XR CHEST 2V INDICATIONS: COUGH TECHNIQUE: 2 views of the chest were acquired. COMPARISON: [facility], , CHEST 1 VIEW, 08/10/2012, 19:53. FINDINGS: Surgical changes and devices: None. Lungs and pleura: Lungs are clear. No pleural effusions or pneumothorax. Mediastinum: Mediastinal contours are normal. Heart size is normal. Bones and chest wall: No suspicious bony abnormalities. Soft tissues appear unremarkable. IMPRESSION: No acute cardiopulmonary abnormality. Dictated by: Carlos Cavazos M.D. on 05/29/2021 at 14:23 Approved by: Carlos Cavazos M.D. on 05/29/2021 at 14:26
--- NOTE | 2021-05-29 12:00 | DI.CT.S_ITS ---
PROCEDURE: CT ABDOMEN PELVIS W CON INDICATIONS: ABDOMINAL PAIN,LEFT UPPER QUADRANT TECHNIQUE: After the administration of oral and IV contrast, axial sections were acquired from the lung bases to the pubic symphysis. Coronal and sagittal reformats were performed. For radiation dose reduction, the following was used: automated exposure control, adjustment of mA and/or kV according to patient size. COMPARISON: [facility], CT, CT ABDOMEN PELVIS W CON, 06/04/2019, 2:16. FINDINGS: Image quality: Excellent. Lung bases: Unremarkable. Heart: No significant findings. ABDOMEN: Liver: Normal enhancement and contour. Scattered hypoattenuating lesions are seen measuring up to 1.4 cm, likely reflecting cysts. Gallbladder: Surgically absent. Biliary ducts: Unremarkable. Pancreas: Unremarkable. Spleen: Unremarkable. Adrenal Glands: Unremarkable. Kidneys and Ureters: Symmetric enhancement without evidence of obstructive uropathy. 3.5 x 2.2 cm hypoattenuating lesion in the right interpolar region, most consistent with a cyst.. Stomach and Bowel: Small hiatal hernia. No evidence of intestinal obstruction. Sigmoid diverticulosis. The appendix is not visualized. Peritoneum: No abnormal intraperitoneal fluid. No free air. Ventral Wall: A bulging of the ventral fascia with diastasis of the rectus muscles. Abdominal Nodes: No retroperitoneal or mesenteric adenopathy by size criteria. Vessels: Aorta and inferior vena cava are normal in size. PELVIS: Pelvic Organs: Unremarkable. Bladder: Wall thickening of the urinary bladder. Pelvic Nodes: No enlarged lymph nodes. Miscellaneous: Small fat containing inguinal hernias are seen. Bones: Multifocal degenerative change. IMPRESSION: 1. No significant abnormality. Dictated by: Carlos Cavazos M.D. on 05/29/2021 at 14:17 Approved by: Carlos Cavazos M.D. on 05/29/2021 at 14:23
--- NOTE | 2021-05-29 13:03 | DI.RAD.S_ITS ---
PROCEDURE: XR HIP W PEL IF DONE RT 2V INDICATIONS: RT HIP PAIN TECHNIQUE: AP pelvis with lateral view(s) of the right hip(s). COMPARISON: None. FINDINGS: Bones: No fractures or dislocations. Pelvic ring appears intact. [id number] periarticular change. Prominence of the right femoral head/neck junction. The joint spaces are centrally maintained. Soft tissues: The visualized bowel gas pattern is normal. No suspicious soft tissue calcifications. 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 Dictated by: Carlos Cavazos M.D. on 05/29/2021 at 14:28 Approved by: Carlos Cavazos M.D. on 05/29/2021 at 14:29
== END ==
PROVIDERS: Family Provider Family Medicine; PCP Internal Medicine; Referring Provider Internal Medicine; Visit Provider Internal Medicine
DX: R10.12 Left upper quadrant pain (principal); M25.551 Pain in right hip; R05.9 Cough, unspecified; K44.9 Diaphragmatic hernia without obstruction or gangrene; K57.30 Diverticulosis of large intestine without perforation or abscess without bleeding; Z90.49 Acquired absence of other specified parts of digestive tract
CPT/HCPCS: 71046; 73502; 74177; Q9967

== ENCOUNTER 2021-10-15 21:30 | Emergency (ER) | payer MEDICARE, OTHER, SELFPAY ==
[2019-06-04 05:12] VITALS: BMI 33.7
[2021-10-15 21:35] VITALS: BP 177/88; PULSE 98; RESP 15; TEMP 36.7; O2SAT 98; BMI 30.1
--- NOTE | 2021-10-15 21:47 | DI.RAD.S_ITS ---
PROCEDURE: XR CHEST 1V INDICATIONS: chest pain TECHNIQUE: One view of the chest was acquired. COMPARISON: [facility], CR, XR CHEST 2V, 05/29/2021, 12:57. FINDINGS: Surgical changes and devices: None. Lungs and pleura: Lungs are clear. No pleural effusions or pneumothorax. Mediastinum: Mediastinal contours appear normal. Heart size is normal. Bones and chest wall: No suspicious bony lesions. Overlying soft tissues appear unremarkable. IMPRESSION: 1. No acute cardiopulmonary disease. Dictated by: Garth Quiñones M.D. on 10/16/2021 at 0:04 Approved by: Garth Quiñones M.D. on 10/16/2021 at 0:04
[2021-10-15 22:09] LABS: Add Manual Diff / Slide Review NO; Basophils Absolute Auto 100 /uL (0-100); Basophils Percent Auto 0.9 % (0-2); Eosinophils Absolute Auto 200 /uL (0-450); Eosinophils Percent Auto 2.3 % (2-4); Hematocrit 41.4 % (41-53); Hemoglobin 14.1 g/dL (13.5-17.5); Lymphocytes Absolute Auto 2900 /uL (1100-4500); Lymphocytes Percent Auto 37.7 % (25-40); Mean Corpuscular Volume 85.4 fL (80-100); Monocytes Absolute Auto 700 /uL (0-900); Neutrophils Absolute Auto 3800 /uL (1500-7000); Neutrophils Percent Auto 50.1 % (50-75); Platelet Count 175 X10^3/uL (150-400); Red Blood Cell Count 4.85 X10^6/uL (4.5-5.9); White Blood Cell Count 7.6 X10^3/uL (4.5-11.0)
[2021-10-15 22:19] LABS: Alanine Aminotransferase 18 IU/L (<50); Albumin 4.1 g/dL (3.5-5.0); Albumin Globulin Ratio 1.3 (1.0-2.8); Alkaline Phosphatase 56 U/L (38-126); Aspartate Aminotransferase 28 IU/L (17-59); BUN Creatinine Ratio 17.4 (6-22); Bilirubin Total 0.5 mg/dL (0.2-1.3); Blood Urea Nitrogen 19 mg/dL (9-20); Calcium 8.8 mg/dL (8.4-10.2); Carbon Dioxide 26 mmol/L (22-32); Chloride 105 mmol/L (98-107); Creatine Kinase 84 U/L (55-170); Estimated Glomerular Filt Rate > 60 mL/min (>60); Globulin 3.2 g/dL (1.7-4.1); Glucose 130 mg/dL (80-110); HEMOLYSIS 48 (0-50); Lipase 109 U/L (23-300); Magnesium 2.1 mg/dL (1.6-2.3); Potassium 4.3 mmol/L (3.4-5.1); Sodium 141 mmol/L (137-145); Total Protein 7.3 g/dL (6.3-8.2)
[2021-10-15] MEDS: METOPROLOL IR 25 MG TABLET PO (22:24)
[2021-10-15 22:30] LABS: Troponin I < 0.012 ng/mL (0.01-0.034)
[2021-10-15 22:47] VITALS: BP 175/60; PULSE 43; RESP 16; O2SAT 99
--- NOTE | 2021-10-15 23:09 | ED_ITS ---
HPI - Arrhythmia/Palpitations General Chief Complaint: Arrhythmia/Palpitations Stated Complaint: states A-FIB Time Seen by Provider: 10/15/21 22:46 Source: patient Mode of arrival: Ambulatory History of Present Illness HPI narrative: Patient here with his . At home tonight is 7:30 p.m. patient experienced palpitations and mild 2/10 substernal chest pressure, nonradiating. No diaphoresis nausea or dyspnea. And no recent exertional chest pain or dyspnea. Patient has history of atrial fibrillation. Is on 81 mg twice a day. Is on amlodipine and Micardis. Patient does not have active jumpbasting lining baster but does see a family doctor that has been monitoring his medications. Patient took home blood pressure cuff and noticed heart rate was in the 90s. His resting heart rate is in the mid 40s. Chest pressure resolved. During course of stay patient self converted back to sinus bradycardia. Patient in no distress. Related Data Home Medications Medication Instructions Recorded Confirmed aspirin 81 mg chewable tablet 81 mg PO BID ##0 08/11/12 10/15/21 atorvastatin 10 mg tablet (Lipitor) 10 mg PO HS ##0 08/11/12 10/15/21 [id number]-[id number] tablet 1 tab PO DAILY ##0 08/11/12 10/15/21 omeprazole 40 mg capsule,delayed 40 mg PO BID ##0 08/11/12 10/15/21 release telmisartan 80 mg tablet (Micardis) 80 mg PO Q DAY ##0 08/11/12 10/15/21 amlodipine 2.5 mg tablet (Norvasc) 2.5 mg PO DAILY 06/04/19 06/20/19 cholecalciferol (vitamin D3) 50 2,000 unit PO DAILY 06/04/19 10/15/21 mcg (2,000 unit) tablet (Vitamin D3) amlodipine 5 mg tablet (Norvasc) 5 mg PO DAILY 10/15/21 10/15/21 famotidine 20 mg tablet (Pepcid) 20 mg PO DAILY 10/15/21 10/15/21 omega-3 fatty acids 1,000 mg PO DAILY 10/15/21 10/15/21 tadalafil 5 mg tablet (Cialis) 5 mg PO DAILY PRN Erectile 10/15/21 10/15/21 Dysfunction tamsulosin 0.4 mg capsule (Flomax) 0.4 mg PO DAILY 10/15/21 10/15/21 Previous Rx's Medication Instructions Recorded metoprolol tartrate 25 mg tablet 25 mg PO PRN PRN For atrial 10/16/21 fibrillation episode #14 tabs Allergies Allergy/AdvReac Type Severity Reaction Status Date / Time No Known Drug Allergies Allergy Verified 06/20/19 14:44 Review of Systems Review of Systems Narrative: GENERAL: Denies chills, fatigue, malaise, fever, sweats. HEENT: Denies sinus pain, ear pain, sore throat RESPIRATORY: Denies dyspnea, cough CARDIOVASCULAR: Positive chest pain, palpitations GASTROINTESTINAL: Denies nausea, vomiting, abdominal pain : Denies dysuria, frequency, hematuria MUSCULOSKELETAL: denies muscle or bony pain SKIN: Denies rash, skin lesions NEUROLOGIC: Denies weakness, numbness ROS Unobtainable: All systems reviewed & are unremarkable except as noted in HPI and below Patient History Medical History (Updated 10/15/21 @ 23:17 by Braydon Forbes MD) Acid reflux Cataract Hiatal hernia High blood pressure High cholesterol Sleep apnea Squamous cell carcinoma Surgical History History of sinus surgery History of uvulopalatopharyngoplasty Social History household members: significant other Smoking Status: Never smoker alcohol intake: current Smoking Status: Never smoker alcohol intake frequency: a few times a week Substance Use Type: does not use Exam Narrative Exam Narrative: GENERAL: in no distress, not toxic not dyspneic HEAD: Normocephalic. EYES: Pupils equal round No scleral icterus. ENT: Mucous membranes moist. NECK: Trachea midline. CARDIOVASCULAR: Regular rate and rhythm without murmurs, bradycardia RESPIRATORY: Clear to auscultation. Breath sounds equal bilaterally. No wheezes, rales, or rhonchi. GASTROINTESTINAL: Abdomen soft, non-tender EXTREMITIES: No gross deformities. BACK: No flank tenderness. NEURO: AOx4. SKIN: Warm and dry PSYCH: Not anxious, is cooperative Initial Vital Signs Initial Vital Signs: Vital Signs Temperature 98.0 F 10/15/21 21:35 Pulse Rate 98 H 10/15/21 21:35 Respiratory Rate 15 10/15/21 21:35 Blood Pressure 177/88 H 10/15/21 21:35 Pulse Oximetry 98 10/15/21 21:35 Oxygen Delivery Method 10/15/21 21:35 Course Course Course Narrative: No new issues during course of stay Orders Ordered: ED Orders 10/15/21 21:47 XR chest 1V Stat 10/15/21 22:00 Complete Blood Count AUTO DIFF Stat Comprehensive Metabolic Panel Stat Lipase Stat Magnesium Stat Troponin & CK Cardiac Panel Stat 10/15/21 22:45 EKG-12 Lead Stat 10/15/21 23:23 Trop I [Troponin I] Stat Discontinued Medications Metoprolol Tartrate (Metoprolol Ir 25 Mg Tablet) 25 mg PO NOW ONE Stop: 10/15/21 22:14 Last Admin: 10/15/21 22:24 Dose: 25 mg Documented By: HNG Reevaluation(s) Reevaluation #1: Reviewed results with patient and agrees for 2nd troponin. Patient in sinus bradycardia. No discomfort. Agrees with treatment plan with follow-up with Cardiology and echocardiogram. Patient and state his blood pressure is a lways elevated at doctor's offices. It resolves when he goes home. At this time they will hold on increasing any blood pressure medication. Time: 23:13 Reevaluation #2: Second troponin remains normal. Patient states need refill of his metoprolol tartrate 25 mg as needed for atrial fibrillation. He had old 50 mg ta blets that he was post to break in half for episodes. Time: 00:28 Consultations Consultation #1: Spoke with cardiology dr atkins, appropriate for discharge home. No changes in medication at this time. No anticoagulation. Patient can follow-up in his office for outpatient echocardiogram. If his blood pressure continues to be elevated may need to change his blood pressure medication with primary care. Repeat troponin at 11:30 p.m. Vital Signs Vital signs: Vital Signs - 8 hr 10/15/21 21:35 10/15/21 22:47 10/16/21 00:42 Temperature 98.0 F Pulse Rate 98 H 43 L 44 L Respiratory Rate 15 16 16 Blood Pressure 177/88 H 175/60 H 138/64 Pulse Oximetry 98 99 98 Oxygen Delivery Method Room Air Room Air Room Air MDM - Arrhythmia/Palpitations Differential Diagnosis Differential diagnosis: Likely palpitations, artial fibrillation, artial flutter, ventricular premature beats and supraventricular tachycardia Lab Data Result diagrams: 10/15/21 22:00 10/15/21 22:00 Labs: Lab Results 10/15/21 10/15/21 10/15/21 Range/Units 22:00 22:00 23:23 WBC 7.6 (4.5-11.0) X10^3/uL RBC 4.85 (4.5-5.9) X10^6/uL Hgb 14.1 (13.5-17.5) g/dL Hct 41.4 (41-53) % MCV 85.4 (80-100) fL MCH 29.0 (26-34) PG MCHC 34.0 (30-36) % RDW 14.0 (11.6-14.8) % Plt Count 175 (150-400) X10^3/uL Neut % (Auto) 50.1 (50-75) % Lymph % (Auto) 37.7 (25-40) % Caldwell % (Auto) 9.0 (3-14) % Eos % (Auto) 2.3 (2-4) % Baso % (Auto) 0.9 (0-2) % Neut # (Auto) 3800 (2825-3153) /uL Lymph # (Auto) 2900 (6395-6912) /uL Caldwell # (Auto) 700 (0-900) /uL Eos # (Auto) 200 (0-450) /uL Baso # (Auto) 100 (0-100) /uL Sodium 141 (137-145) mmol/L Potassium 4.3 (3.4-5.1) mmol/L Chloride 105 (98-107) mmol/L Carbon Dioxide 26 (22-32) mmol/L BUN 19 (9-20) mg/dL Creatinine 1.09 (0.66-1.25) mg/dL Estimated GFR > 60 (>60) mL/min BUN/Creatinine Ratio 17.4 (6-22) Glucose 130 H (80-110) mg/dL Calcium 8.8 (8.4-10.2) mg/dL Magnesium 2.1 (1.6-2.3) mg/dL Total Bilirubin 0.5 (0.2-1.3) mg/dL AST 28 (17-59) IU/L ALT 18 (<50) IU/L Alkaline Phosphatase 56 (38-126) U/L Total Creatine Kinase 84 (55-170) U/L CK-MB (CK-2) TNP CK-MB (CK-2) Rel Index TNP Troponin I < 0.012 < 0.012 (0.01-0.034) ng/mL Total Protein 7.3 (6.3-8.2) g/dL Albumin 4.1 (3.5-5.0) g/dL Globulin 3.2 (1.7-4.1) g/dL Albumin/Globulin Ratio 1.3 (1.0-2.8) Lipase 109 (23-300) U/L Imaging Data Chest x-ray: Radiologist's Impresson: [address] [address] XRay Report Signed Patient: Braydon Olsen MR#: [id number] : 1940 Acct:[id number] Age/Sex: 81 / M Date of Service: 10/15/21 Loc: ED Accession Number: [id number] ?? Procedure: XR chest 1V Ordering Provider: Braydon Forbes MD PROCEDURE:? XR CHEST 1V ? INDICATIONS:? chest pain ? TECHNIQUE:? One view of the chest was acquired.? ? COMPARISON:? [facility], CR, XR CHEST 2V, 05/29/2021, 12:57. ? FINDINGS:? ? Surgical changes and devices:? None.? ? Lungs and pleura:? Lungs are clear.? No pleural effusions or pneumothorax.? ? Mediastinum:? Mediastinal contours appear normal.? Heart size is normal.? ? Bones and chest wall:? No suspicious bony lesions.? Overlying soft tissues appear unremarkable.? ? IMPRESSION:? ? 1.? No acute cardiopulmonary disease. ? ? ? Dictated by: Garth Quiñones M.D. on 10/16/2021 at 0:04 ? ? Approved by: Garth Quiñones M.D. on 10/16/2021 at 0:04 ? ECG Data Interpretation: First EKG. Atrial fibrillation rate 95. No ST elevation or depression. Repeat EKG sinus bradycardia rate 45. No ST elevation or depression MDM Narrative Medical decision making narrative: Appropriate for discharge home. I have reviewed with jumpbasting lining baster. Patient and agree for discharge home and follow-up with jumpbasting lining baster and echocardiogram. They will monitor blood pressure at home and if not improving will call family doctor for changes in blood pressure medication. Two troponins completed here. Second troponin from time of onset 4 hours. Patient in no distress. No anticoagulation changes with patient right now. Return precautions reviewed with them. Discharge Plan Departure Patient Disposition: Home Clinical Impression: Atrial fibrillation Instructions: DI for Atrial Fibrillation Activity Restrictions/Additional Instructions: See family doctor this week for re-evaluation your blood pressure. You may need changes in dosing. Dr. Atkins, jumpbasting lining baster with [facility] in [place], his office will be contacting you for office appointment for echocardiogram of the heart. Return if worse if any questions or concerns. Prescriptions: New metoprolol tartrate 25 mg tablet 25 mg PO PRN PRN (Reason: For atrial fibrillation episode) Qty: 14 0RF No Action telmisartan [Micardis] 80 MG tablet 80 mg PO Q DAY Qty: 0 atorvastatin [Lipitor] 10 MG tablet 10 mg PO HS Qty: 0 omeprazole 40 MG capsule,delayed release(DR/EC) 40 mg PO BID Qty: 0 aspirin 81 MG tablet,chewable 81 mg PO BID Qty: 0 Centrum Silver Tablet 1 tab PO DAILY Qty: 0 amlodipine [Norvasc] 2.5 mg Tablet 2.5 mg PO DAILY cholecalciferol (vitamin D3) [Vitamin D3] 2,000 unit Tablet 2,000 unit PO DAILY amlodipine [Norvasc] 5 mg Tablet 5 mg PO DAILY famotidine [Pepcid] 20 mg Tablet 20 mg PO DAILY tamsulosin [Flomax] 0.4 mg Capsule 0.4 mg PO DAILY Fish Oil Capsule 1,000 mg PO DAILY tadalafil [Cialis] 5 mg Tablet 5 mg PO DAILY PRN (Reason: Erectile Dysfunction) Rx Instructions: administer approximately 30min before sexual activity; do not use more than 1 dose per 24hrs Referrals: Braydon Sanabria MD [Primary Care Provider] - Marcelle Atkins MD [Physician] - Visit Report Forms: Patient Portal/API
[2021-10-15 23:58] LABS: Troponin I < 0.012 ng/mL (0.01-0.034)
[2021-10-16 00:42] VITALS: BP 138/64; PULSE 44; RESP 16; O2SAT 98
== END 2021-10-16 00:43 | disposition home or self-care (01) ==
PROVIDERS: Emergency Provider Emergency Medicine; Family Provider Internal Medicine; PCP Internal Medicine
DX: I48.91 Unspecified atrial fibrillation (principal); R07.9 Chest pain, unspecified
CPT/HCPCS: 36415; 71045; 80053; 82550; 83690; 83735; 84484; 85025; 93005; 93010; 99284

== ENCOUNTER 2021-11-18 14:30 | Outpatient (RCR) | payer MEDICARE, OTHER, SELFPAY ==
[2019-06-04 05:12] VITALS: BMI 33.7
--- NOTE | 2021-10-27 17:42 | PT.OIE ---
Current Diagnoses Benign paroxysmal vertigo, left ear (10/27/21) Dizziness and giddiness (10/27/21) Past Medical History (Last Reviewed 10/15/21 @ 23:11 by Braydon Forbes MD) Acid reflux Cataract Hiatal hernia High blood pressure High cholesterol Sleep apnea Squamous cell carcinoma Past Surgical History (Last Reviewed 10/15/21 @ 23:11 by Braydon Forbes MD) History of sinus surgery History of uvulopalatopharyngoplasty Visit Care Team Role Provider Type Braydon Sanabria MD Family Provider Non-Staff Primary Care Provider Specialty: Internal Medicine Address: [address] [place] [address] [address], [place], [address] Email: Chucky Fonseca MD Attending Provider Physician Referring Provider Specialty: Ear, Nose, Throat Address: [address] [place] [address], [id number] Email: [email or web address] Physical Therapy Initial Evaluation PT-OP-A Visit Information Start: 10/27/21 17:22 Freq: Status: Active Protocol: Document 10/27/21 15:15 DCW (Rec: 10/27/21 17:39 DCW [id number]) Out-Patient Physical Therapy Visit Information Visit Information Visit Type Initial Evaluation Visit Start Time 15:15 Visit Stop Time 16:05 Total Visit Minutes 50 Visit Number 1 Number of GLASS BLOWING INSTRUCTOR Visits 0 Evaluation Information Evaluation Date 10/27/21 PT-OP-B Current Condition Start: 10/27/21 17:22 Freq: Status: Active Protocol: Document 10/27/21 15:15 DCW (Rec: 10/27/21 17:39 DCW [id number]) Current Condition History of Current Condition Onset Date 2-3 months Current Complaints Positional vertigo History of Current Condition Pt is an 81 year old male complaining of a 2-3 month history of motion-induced vertigo. Pt reports episodes last 30-60 seconds. Symptoms are provoked by lying down, rolling over, or looking up quickly. Pt notes that 3-4 years ago, he had BPPV, and underwent an Yoko Maneuver with Dr Fonseca' office, which took care of the problem. Notes that he has been feeling like he is in a fog. Pt additionally complains of neck pain and stiffness, especially his left side. Pt denies recent hearing changes, tinnitus, diplopia, dysarthria, discoordination, or decreased mentation/ consciousness. Pt denies hx of head trauma, seizure, migraines, CVA, anxiety/panic disorders, depression, or excessive smoking or drinking. Prior Treatments and Tests Previously had similar symptoms that were resolved with an Yoko maneuver PT-OP-C Subjective Start: 10/27/21 17:22 Freq: Status: Active Protocol: Document 10/27/21 15:15 DCW (Rec: 10/27/21 17:39 DCW [id number]) OP-PT Subjective Patient Comments Patient Comments The thing that really made me go back to Dr Fonseca was when I was sitting in my doctor's office filling out paperwork, and they called me back. I went from looking down at the forms to looking up quickly, and I got so dizzy they were really worried about me. Patient Reported Progress Same Patient Questionnaires Dizziness Handicap Inventory DHI Score 32% DHI Functional Impairment 20 to 39% Impaired (Score 20- 39) OP-PT Pain Assessment Location Left Neck Intensity 3 PT-OP-F Manual Assessment Start: 10/27/21 17:22 Freq: Status: Active Protocol: Document 10/27/21 15:15 DCW (Rec: 10/27/21 17:39 DCW [id number]) Manual Assessments Soft Tissue Assessment Soft Tissue Mobility Assessment Moderate tone along left upper trap PT-OP-O Vestibular Start: 10/27/21 17:22 Freq: Status: Active Protocol: Document 10/27/21 15:15 DCW (Rec: 10/27/21 17:39 DCW [id number]) Vestibular Assessment Screening Tests Vestibular Artery Screen Negative Auditory Tests Shell Test Lateralizes right Rinne Test Negative Air Conduction Results Equal Visual Testing Smooth Pursuits Horizontal WNL Smooth Pursuits Vertical WNL Saccades Horizontal WNL Saccades Vertical WNL Heave Test Positive Bilateral Thrust Head Positive Bilateral Spontaneous Nystagmus Negative Positional Testing [place]-Hallpike Positive Left,Negative Right, Upbeating,< 60 Seconds Rolling Test Positive Left,Positive Right, Geotropic,< 60 Seconds PT-OP-Q Treatments Start: 10/27/21 17:22 Freq: Status: Active Protocol: Document 10/27/21 15:15 DCW (Rec: 10/27/21 17:39 DCW [id number]) Canalithic Repositioning BPPV Treatment Gufoni Affected Canal(s) L Horizontal canal Reps x1 Yoko Affected Canal(s) L Posterior canal Reps x1 Comments Modified Yoko PT-OP-T Assessment and Plan Start: 10/27/21 17:22 Freq: Status: Active Protocol: Document 10/27/21 15:15 DCW (Rec: 10/27/21 17:39 DCW [id number]) Physical Therapy Assessment Rehab Potential Rehabilitation Potential Excellent Evaluation Complexity Number of Personal Factors/Comorbidities 1-2 Number of Body Systems Impaired 1-2 Clinical Presentation at Evaluation Unstable Impairments Impairments Balance,Vestibular Goals Two Impairment Positive left positional testing Mental Retardation Nurse Goal (LTG) Pt positional testing negatively bilaterally in order to demonstrate resolved BPPV symptoms LTG Duration 11/27/21 One Impairment Pt reports vertigo with bed mobility Short Term Goal (STG) Pt to demonstrate bed mobility with zero complaints of vertigo over one full week STG Duration 11/10/21 Assessment Summary Assessment During left [place] Miguel-Hallpike test, pt complained of vertigo and demonstrated up-beating, torsional nystagmus lasting approximately 15 seconds, consistent with diagnosis of left-sided posterior canal BPPV, canalithiasis-type. Pt was treated with a left-sided modified Yoko maneuver. Pt complained of symptoms in the first and third position, which is normally indicative of a successful treatment. Unfortunately, pt's cervical stiffness limited his ROM and positioning, and upon return to sitting, pt demonstrated horizontal nystagmus, which indicates a likely conversion from posterior canal to horizontal canal BPPV. Further Luis Miguel-Hallpike testing was negative, however roll testing showed 15 seconds of geotropic nystagmus, L>R. A left-sided Gufoni maneuver was performed, and pt noted immediate improvement. Pt was educated on BPPV, expectations for treatment, possible recurrence (BPPV has a ~50% recurrence rate in the five years following treatment), and post-Yoko restrictions. Pt to return in ~1 week for a follow-up appointment, and intermittently afterward as indicated for treatment of BPPV. Additionally, pt may need some STM/flexibility exercises for his left upper trap to enable proper cervical mobility and positioning for future CRM if needed. Physical Therapy Plan Frequency and Duration Frequency of Treatment 1-2x/week Duration of Treatment One month Plan of Care Start Date 10/27/21 Plan of Care End Date 11/27/21 Therapeutic Interventions Therapeutic Interventions Balance Training,Canalithic Repositioning,Manual Therapy, Neuromuscular Re-education, Patient/Caregiver Education, Self-Care/Home Management, Therapeutic Exercises, Vestibular Rehabilitation Next Visit Focus/Plan Next Note Type Treatment Note Next Visit Plan Follow-up positional testing with CRM as indicated.
--- NOTE | 2021-10-27 17:42 | PT.OPPOC ---
Physical, Occupational & Speech Therapy At [facility] Current Diagnoses Benign paroxysmal vertigo, left ear (10/27/21) Dizziness and giddiness (10/27/21) Visit Care Team Role Provider Type Braydon Sanabria MD Family Provider Non-Staff Primary Care Provider Specialty: Internal Medicine Address: [facility] [address], [place], [address] Email: Chucky Fonseca MD Attending Provider Physician Referring Provider Specialty: Ear, Nose, Throat Address: [address] [place] [address], [address] Email: [email or web address] Plan Of Care PT-OP-T Assessment and Plan Start: 10/27/21 17:22 Freq: Status: Active Protocol: Document 10/27/21 15:15 DCW (Rec: 10/27/21 17:39 DCW [id number]) Physical Therapy Assessment Rehab Potential Rehabilitation Potential Excellent Evaluation Complexity Number of Personal Factors/Comorbidities 1-2 Number of Body Systems Impaired 1-2 Clinical Presentation at Evaluation Unstable Impairments Impairments Balance,Vestibular Goals Two Impairment Positive left positional testing Associate Director Career Services Goal (LTG) Pt positional testing negatively bilaterally in order to demonstrate resolved BPPV symptoms LTG Duration 11/27/21 One Impairment Pt reports vertigo with bed mobility Short Term Goal (STG) Pt to demonstrate bed mobility with zero complaints of vertigo over one full week STG Duration 11/10/21 Assessment Summary Assessment During left [place]-Hallpike test, pt complained of vertigo and demonstrated up-beating, torsional nystagmus lasting approximately 15 seconds, consistent with diagnosis of left-sided posterior canal BPPV, canalithiasis-type. Pt was treated with a left-sided modified Yoko maneuver. Pt complained of symptoms in the first and third position, which is normally indicative of a successful treatment. Unfortunately, pt's cervical stiffness limited his ROM and positioning, and upon return to sitting, pt demonstrated horizontal nystagmus, which indicates a likely conversion from posterior canal to horizontal canal BPPV. Further [place]-Hallpike testing was negative, however roll testing showed 15 seconds of geotropic nystagmus, L>R. A left-sided Gufoni maneuver was performed, and pt noted immediate improvement. Pt was educated on BPPV, expectations for treatment, possible recurrence (BPPV has a ~50% recurrence rate in the five years following treatment), and post-Yoko restrictions. Pt to return in ~1 week for a follow-up appointment, and intermittently afterward as indicated for treatment of BPPV. Additionally, pt may need some STM/flexibility exercises for his left upper trap to enable proper cervical mobility and positioning for future CRM if needed. Physical Therapy Plan Frequency and Duration Frequency of Treatment 1-2x/week Duration of Treatment One month Plan of Care Start Date 10/27/21 Plan of Care End Date 11/27/21 Therapeutic Interventions Therapeutic Interventions Balance Training,Canalithic Repositioning,Manual Therapy, Neuromuscular Re-education, Patient/Caregiver Education, Self-Care/Home Management, Therapeutic Exercises, Vestibular Rehabilitation Next Visit Focus/Plan Next Note Type Treatment Note Next Visit Plan Follow-up positional testing with CRM as indicated. Plan of Care Dates Plan of Care Start Date 10/27/21 Plan of Care End Date 11/27/21 Electronically Signed by: Volodymyr Julian, PT 10/27/21 1276 If you are in agreement with this Plan of Care, please return a signed and dated copy. I have reviewed this Plan of Care and certify that the skilled therapy services above are required to meet the patient?s needs. Physician Signature Date Printed Name and Credentials Clinical Instructor Signature Printed Name and Credentials
--- NOTE | 2021-11-18 15:57 | PT.OTN ---
Current Diagnoses Benign paroxysmal vertigo, left ear (11/18/21) Dizziness and giddiness (11/18/21) Physical Therapy Treatment Note PT-OP-A Visit Information Start: 10/27/21 17:22 Freq: Status: Active Protocol: Document 11/18/21 14:40 DCW (Rec: 11/18/21 15:56 DCW [id number]) Out-Patient Physical Therapy Visit Information Visit Information Visit Type Treatment Note Visit Note 10 min late Visit Start Time 14:40 Visit Stop Time 15:20 Total Visit Minutes 40 Visit Number 2 Number of EMBEDDER Visits 0 Evaluation Information Evaluation Date 10/27/21 PT-OP-B Current Condition Start: 10/27/21 17:22 Freq: Status: Active Protocol: Document 10/27/21 15:15 DCW (Rec: 10/27/21 17:39 DCW [id number]) Current Condition History of Current Condition Onset Date 2-3 months Current Complaints Positional vertigo History of Current Condition Pt is an 81 year old male complaining of a 2-3 month history of motion-induced vertigo. Pt reports episodes last 30-60 seconds. Symptoms are provoked by lying down, rolling over, or looking up quickly. Pt notes that 3-4 years ago, he had BPPV, and underwent an Yoko Maneuver with Dr Fonseca' office, which took care of the problem. Notes that he has been feeling like he is in a fog. Pt additionally complains of neck pain and stiffness, especially his left side. Pt denies recent hearing changes, tinnitus, diplopia, dysarthria, discoordination, or decreased mentation/ consciousness. Pt denies hx of head trauma, seizure, migraines, CVA, anxiety/panic disorders, depression, or excessive smoking or drinking. Prior Treatments and Tests Previously had similar symptoms that were resolved with an Yoko maneuver PT-OP-C Subjective Start: 10/27/21 17:22 Freq: Status: Active Protocol: Document 11/18/21 14:40 DCW (Rec: 11/18/21 15:56 DCW [id number]) OP-PT Subjective Patient Comments Patient Comments As far as the type of dizziness we were looking at, with the crystals and canals, I think we fixed it, there are still just times that I feel my feet aren't solid on the ground. I really have to pay attention now to where my feet are, it's like they don't get to the ground when I expect them to. PT-OP-E Functional Tests Start: 11/18/21 15:56 Freq: Status: Active Protocol: Document 11/18/21 14:40 DCW (Rec: 11/18/21 15:57 DCW [id number]) Functional Tests Dynamic Gait Index (DGI) Score 21/24 DGI Impairment Rating 1 to <20% Impaired (Score 20- 23) Functional Gait Assessment Score 25/30 Functional Gait Assessment Impairment 1 to <20% Impaired (Score 25- Rating 29) PT-OP-F Manual Assessment Start: 10/27/21 17:22 Freq: Status: Active Protocol: Document 10/27/21 15:15 DCW (Rec: 10/27/21 17:39 DCW [id number]) Manual Assessments Soft Tissue Assessment Soft Tissue Mobility Assessment Moderate tone along left upper trap PT-OP-O Vestibular Start: 10/27/21 17:22 Freq: Status: Active Protocol: Document 11/18/21 14:40 DCW (Rec: 11/18/21 15:56 DCW [id number]) Vestibular Assessment Positional Testing [place]-Hallpike Negative Left,Negative Right Rolling Test Negative Left,Negative Right PT-OP-Q Treatments Start: 10/27/21 17:22 Freq: Status: Active Protocol: Document 11/18/21 14:40 DCW (Rec: 11/18/21 15:56 DCW [id number]) Manual Therapy Treatment Other Other Manual Treatments Positional testing Neuro Re-Education Treatment Other Activities Testing Details DGI PT-OP-T Assessment and Plan Start: 10/27/21 17:22 Freq: Status: Active Protocol: Document 11/18/21 14:40 DCW (Rec: 11/18/21 15:56 DCW [id number]) Physical Therapy Assessment Impairments Impairments Balance,Vestibular Goals Two Impairment Positive left positional testing Data Typist Goal (LTG) Pt positional testing negatively bilaterally in order to demonstrate resolved BPPV symptoms LTG Duration Met One Impairment Pt reports vertigo with bed mobility Short Term Goal (STG) Pt to demonstrate bed mobility with zero complaints of vertigo over one full week STG Duration Met Assessment Summary Assessment Pt positional testing entirely negative today. Did report some concers regarding his balance, DGI and FGA were both WNL, no concerns with falls risk. Pt then noted his balance is typically only poor when on uneven ground, because his will then hold on to him for stability, which throws him off balance. Discussed trekking poles. No further indications for continued outpatient. Physical Therapy Plan Frequency and Duration Frequency of Treatment 1-2x/week Duration of Treatment One month Plan of Care Start Date 10/27/21 Plan of Care End Date 11/27/21 Therapeutic Interventions Therapeutic Interventions Balance Training,Canalithic Repositioning,Manual Therapy, Neuromuscular Re-education, Patient/Caregiver Education, Self-Care/Home Management, Therapeutic Exercises, Vestibular Rehabilitation Next Visit Focus/Plan Next Note Type Treatment Note Next Visit Plan Follow-up positional testing with CRM as indicated.
== END 2021-11-19 09:07 ==
LOC: PHYS 14:30
PROVIDERS: Family Provider Internal Medicine; PCP Internal Medicine; Referring Provider Otolaryngology; Visit Provider Otolaryngology
DX: H81.12 Benign paroxysmal vertigo, left ear (principal)
CPT/HCPCS: 95992; 97112; 97140; 97161

== ENCOUNTER 2022-10-23 12:58 | Emergency (ER) | payer MEDICARE, OTHER, SELFPAY ==
[2019-06-04 05:12] VITALS: BMI 33.7
[2022-10-23] VITALS (11 sets, daily range): BP systolic 146–201; BP diastolic 67–84; PULSE 41–53; RESP 11–22; TEMP 36.9; O2SAT 93–97; BMI 31.5
--- NOTE | 2022-10-23 13:07 | DI.RAD.S_ITS ---
PROCEDURE: XR CHEST 1V INDICATIONS: chest pain TECHNIQUE: One view of the chest was acquired. COMPARISON: [facility], CR, XR CHEST 1V, 10/15/2021, 21:57. FINDINGS: Surgical changes and devices: None. Lungs and pleura: Lungs are clear. No pleural effusions or pneumothorax. Mediastinum: Mediastinal contours appear normal. Heart size is normal. Bones and chest wall: No suspicious bony lesions. Overlying soft tissues appear unremarkable. IMPRESSION: No acute cardiopulmonary disease. Dictated by: Kaden Simon M.D. on 10/23/2022 at 15:45 Approved by: Kaden Simon M.D. on 10/23/2022 at 15:45
[2022-10-23 13:23] LABS: Add Manual Diff / Slide Review NO; Basophils Absolute Auto 100 /uL (0-100); Basophils Percent Auto 0.8 % (0-2); Eosinophils Absolute Auto 100 /uL (0-450); Eosinophils Percent Auto 1.2 % (2-4); Hematocrit 38.1 % (41-53); Hemoglobin 12.8 g/dL (13.5-17.5); Lymphocytes Absolute Auto 3100 /uL (1100-4500); Mean Corpuscular HGB Conc 33.5 % (30-36); Mean Corpuscular Hemoglobin 29.5 PG (26-34); Mean Corpuscular Volume 88.1 fL (80-100); Monocytes Absolute Auto 700 /uL (0-900); Monocytes Percent Auto 10.2 % (3-14); Neutrophils Absolute Auto 3300 /uL (1500-7000); Neutrophils Percent Auto 45.8 % (50-75); Platelet Count 152 X10^3/uL (150-400); Red Blood Cell Count 4.32 X10^6/uL (4.5-5.9); Red Cell Distribution Width 14.4 % (11.6-14.8); White Blood Cell Count 7.3 X10^3/uL (4.5-11.0)
[2022-10-23 13:24] LABS: INR 1.4 (0.9-1.3)
[2022-10-23 13:27] LABS: PTT Partial Thromboplastin Tim 44 SECONDS (26-36)
[2022-10-23 13:28] LABS: Alanine Aminotransferase 23 IU/L (<50); Albumin 3.8 g/dL (3.5-5.0); Albumin Globulin Ratio 1.4 (1.0-2.8); Alkaline Phosphatase 53 U/L (38-126); Aspartate Aminotransferase 25 IU/L (17-59); BUN Creatinine Ratio 20.8 (6-22); Blood Urea Nitrogen 20 mg/dL (9-20); Calcium 8.7 mg/dL (8.4-10.2); Carbon Dioxide 25 mmol/L (22-32); Chloride 105 mmol/L (98-107); Creatine Kinase 138 U/L (55-170); Estimated Glomerular Filt Rate > 60 mL/min (>60); Globulin 2.8 g/dL (1.7-4.1); Glucose 116 mg/dL (80-110); HEMOLYSIS < 15 (0-50); Lipase 76 U/L (23-300); Magnesium 2.1 mg/dL (1.6-2.3); Potassium 4.4 mmol/L (3.4-5.1); Sodium 136 mmol/L (137-145); Total Protein 6.6 g/dL (6.3-8.2)
--- NOTE | 2022-10-23 13:30 | PC.NURSE ---
Pt reports three weeks of ongoing symptoms of fatigue, malaise, feeling vague, SOB, dizziness and lightheadedness, similar to the way he has felt when he has gone into afib in previous episodes. He reports he has had to take naps, which is not normal for him. On assessment, pt is in NSR with frequent PVCs and reports feeling off with a hollow feeling in his chest and abdomen.
[2022-10-23 13:40] LABS: Troponin I < 0.012 ng/mL (0.01-0.034)
--- NOTE | 2022-10-23 14:05 | ED_ITS ---
HPI - Arrhythmia/Palpitations General Chief Complaint: Arrhythmia/Palpitations Stated Complaint: thinks afib Time Seen by Provider: 10/23/22 13:01 History of Present Illness HPI narrative: 82-year-old male nonsmoker with a history of AFib, hypertension, hyperlipidemia presents with a chief complaint of going in and out of AFib for the past few weeks. He states he was at a restaurant and thought he was in AFib. He has had some occasions of dizziness and lightheadedness. Denies any chest pain or shortness of breath. He denies any recent medication change. His biggest complaint really is that he feels like he is in a fog most of the time. No specific neurologic complaints no lateralizing symptoms. Just that he is bit detached from his environment Related Data Home Medications Medication Instructions Recorded Confirmed aspirin 81 mg chewable tablet 81 mg PO BID ##0 08/11/12 10/15/21 atorvastatin 10 mg tablet (Lipitor) 10 mg PO HS ##0 08/11/12 10/15/21 qmedzmwxnldp-yfdwrzlf-lyegxo tablet 1 tab PO DAILY ##0 08/11/12 10/15/21 omeprazole 40 mg capsule,delayed 40 mg PO BID ##0 08/11/12 10/15/21 release telmisartan 80 mg tablet (Micardis) 80 mg PO Q DAY ##0 08/11/12 10/15/21 amlodipine 2.5 mg tablet (Norvasc) 2.5 mg PO DAILY 06/04/19 06/20/19 cholecalciferol (vitamin D3) 50 2,000 unit PO DAILY 06/04/19 10/15/21 mcg (2,000 unit) tablet (Vitamin D3) amlodipine 5 mg tablet (Norvasc) 5 mg PO DAILY 10/15/21 10/15/21 famotidine 20 mg tablet (Pepcid) 20 mg PO DAILY 10/15/21 10/15/21 omega-3 fatty acids 1,000 mg PO DAILY 10/15/21 10/15/21 tadalafil 5 mg tablet (Cialis) 5 mg PO DAILY PRN Erectile 10/15/21 10/15/21 Dysfunction tamsulosin 0.4 mg capsule (Flomax) 0.4 mg PO DAILY 10/15/21 10/15/21 Previous Rx's Medication Instructions Recorded metoprolol tartrate 25 mg tablet 25 mg PO PRN PRN For atrial 10/16/21 fibrillation episode #14 tabs Allergies Allergy/AdvReac Type Severity Reaction Status Date / Time No Known Drug Allergies Allergy Verified 06/20/19 14:44 Review of Systems Review of Systems Narrative: GENERAL: See HPI HEENT: Denies sinus pain, ear pain, sore throat, difficulty swallowing, dizziness. RESPIRATORY: Denies dyspnea, cough, wheezing, hemoptysis, sputum. CARDIOVASCULAR: Denies chest pain, palpitations, orthopnea, edema, GASTROINTESTINAL: Denies nausea, vomiting, abdominal pain, diarrhea, constipation, melena. : Denies dysuria, frequency, incontinence, hematuria, urinary retention. MUSCULOSKELETAL: denies weakness, joint pain, or bony pain SKIN: Denies rash, skin lesions, or other NEUROLOGIC: Denies weakness, headache, numbness, change in speech, confusion, seizures, incoordination. PSYCHIATRIC: No concerning psychosocial issues. 12 point review of systems is negative except for those stated above Patient History Medical History (Updated 10/23/22 @ 15:55 by Qamar Zambrano DO) Acid reflux Cataract Hiatal hernia High blood pressure High cholesterol Sleep apnea Squamous cell carcinoma Surgical History History of sinus surgery History of uvulopalatopharyngoplasty Social History household members: significant other Smoking Status: Never smoker alcohol intake: current Smoking Status: Never smoker alcohol intake frequency: a few times a week Substance Use Type: does not use Exam Narrative Exam Narrative: GENERAL: [82] year old patient appears stated age. Well-developed patient, in mild distress. HEAD: Atraumatic. Normocephalic. EYES: Pupils equal round and reactive. Extraocular motions intact. No scleral icterus. No injection or drainage. ENT: Nose without bleeding, purulent drainage. Throat without erythema, tonsillar hypertrophy or exudate. Airway patent. NECK: Trachea midline. Non tender CARDIOVASCULAR: Bradycardic but regular with occasional PVCs rhythm without murmurs, gallops, or rubs. RESPIRATORY: Clear to auscultation. Breath sounds equal bilaterally. No wheezes, rales, or rhonchi. GASTROINTESTINAL: Abdomen soft, non-tender, nondistended. EXTREMITIES: No edema or joint tenderness. BACK: Nontender without deformity or crepitance. No flank tenderness. NEURO: AOx3. SKIN: No rash or erythema of visible areas Initial Vital Signs Initial Vital Signs: Vital Signs Pulse Rate 53 L 10/23/22 13:03 Pulse Oximetry 97 10/23/22 13:03 Course Orders Ordered: ED Orders 10/23/22 13:07 XR chest 1V Stat 10/23/22 13:08 Complete Blood Count AUTO DIFF Stat Comprehensive Metabolic Panel Stat Lipase Stat Magnesium Stat PTT Partial Thromboplastin Arjun Stat Prothrombin Time INR Stat Troponin & CK Cardiac Panel Stat 10/23/22 13:10 EKG-12 Lead Stat Vital Signs Vital signs: Vital Signs - 8 hr 10/23/22 13:08 10/23/22 13:03 10/23/22 13:05 Temperature 98.4 F Pulse Rate 47 L 53 L 51 L Respiratory Rate 20 19 Blood Pressure 201/82 H Pulse Oximetry 97 97 96 Oxygen Delivery Method Room Air 10/23/22 13:05 10/23/22 13:25 10/23/22 13:25 Temperature Pulse Rate 48 L Respiratory Rate 18 Blood Pressure 201/82 H 159/69 H Pulse Oximetry 96 Oxygen Delivery Method 10/23/22 13:30 10/23/22 13:30 10/23/22 14:00 Temperature Pulse Rate 42 L 41 L Respiratory Rate 12 14 Blood Pressure 148/67 H Pulse Oximetry 95 96 Oxygen Delivery Method 10/23/22 14:01 10/23/22 14:01 10/23/22 14:30 Temperature Pulse Rate 41 L 43 L Respiratory Rate 12 11 L Blood Pressure 146/84 H Pulse Oximetry 95 93 Oxygen Delivery Method 10/23/22 14:31 10/23/22 14:31 10/23/22 15:00 Temperature Pulse Rate 43 L 45 L Respiratory Rate 11 L 12 Blood Pressure 147/68 H Pulse Oximetry 95 95 Oxygen Delivery Method 10/23/22 15:01 10/23/22 15:01 Temperature Pulse Rate 46 L Respiratory Rate 22 Blood Pressure 183/72 H Pulse Oximetry 94 Oxygen Delivery Method MDM - Arrhythmia/Palpitations Lab Data 10/23/22 13:08 10/23/22 13:08 Labs: Lab Results 10/23/22 10/23/22 10/23/22 Range/Units 13:08 13:08 13:08 WBC 7.3 (4.5-11.0) X10^3/uL RBC 4.32 L (4.5-5.9) X10^6/uL Hgb 12.8 L (13.5-17.5) g/dL Hct 38.1 L (41-53) % MCV 88.1 (80-100) fL MCH 29.5 (26-34) PG MCHC 33.5 (30-36) % RDW 14.4 (11.6-14.8) % Plt Count 152 (150-400) X10^3/uL Neut % (Auto) 45.8 L (50-75) % Lymph % (Auto) 42.0 H (25-40) % [place] % (Auto) 10.2 (3-14) % Eos % (Auto) 1.2 L (2-4) % Baso % (Auto) 0.8 (0-2) % Neut # (Auto) 3300 (9516-9343) /uL Lymph # (Auto) 3100 (1261-1539) /uL [place] # (Auto) 700 (0-900) /uL Eos # (Auto) 100 (0-450) /uL Baso # (Auto) 100 (0-100) /uL PT 16.0 H (10.1-12.7) SECONDS INR 1.4 H (0.9-1.3) APTT 44 H (26-36) SECONDS Sodium 136 L (137-145) mmol/L Potassium 4.4 (3.4-5.1) mmol/L Chloride 105 (98-107) mmol/L Carbon Dioxide 25 (22-32) mmol/L BUN 20 (9-20) mg/dL Creatinine 0.96 (0.66-1.25) mg/dL Estimated GFR > 60 (>60) mL/min BUN/Creatinine Ratio 20.8 (6-22) Glucose 116 H (80-110) mg/dL Calcium 8.7 (8.4-10.2) mg/dL Magnesium 2.1 (1.6-2.3) mg/dL Total Bilirubin 1.0 (0.2-1.3) mg/dL AST 25 (17-59) IU/L ALT 23 (<50) IU/L Alkaline Phosphatase 53 (38-126) U/L Total Creatine Kinase 138 (55-170) U/L Troponin I < 0.012 (0.01-0.034) ng/mL Total Protein 6.6 (6.3-8.2) g/dL Albumin 3.8 (3.5-5.0) g/dL Globulin 2.8 (1.7-4.1) g/dL Albumin/Globulin Ratio 1.4 (1.0-2.8) Lipase 76 (23-300) U/L MDM Narrative Medical decision making narrative: [82] year old patient presents with nonspecific complaints, questions AFib Multiple etiologies for patient's symptoms considered including, but not limited to: [Atrial fibrillation versus cardiac ischemia versus electrolyte abnormality versus infectious process versus other] Prior Charts reviewed in our EMR Primary Historian: patient Labs reviewed and interpreted by myself: No leukocytosis or left shift, no obvious anemia, electrolytes, renal function, LFTs and troponin within normal Imaging reviewed: Chest x-ray without acute findings Patient's symptoms improved over duration of stay with above-stated therapies. Findings and discharge diagnosis discussed with patient/family followed by verbalization of understanding Return precautions discussed with patient/family whom verbalize understanding of diagnosis and plan Discharge Plan Departure Patient Disposition: Home Clinical Impression: Frequent PVCs Instructions: Premature Ventricular Beats Activity Restrictions/Additional Instructions: *You have been diagnosed with [concern for atrial fibrillation. As we discussed thankfully there is no evidence of AFib today, you do have occasional PVCs. Your labs and imaging are reassuring] *What to do: *Please continue to take your regular medications as directed. [ ] New medication prescriptions sent to your pharmacy: [ ] [ ] New medication written as a paper prescription [ ] No new medications given *Please follow up with your primary care provider in 2-3 days, call for an appoi ntment. Let them know you were seen in the Emergency Department and that we ask that you be seen in follow up. We will electronically transmit a record of today's note if your PCP is in our system *If you do not have a primary care provider please contact the [facility] Resource line at [phone]. They will ask some questions about your medical history and help get you set up with a doctor in the community. *Return to Emergency Department if you should have any new, worsening or bette rning symptoms, such as [fever greater than 101 F, shaking chills, worsening pain, persistent vomiting or other bothersome symptoms] Prescriptions: No Action telmisartan [Micardis] 80 MG tablet 80 mg PO Q DAY Qty: 0 atorvastatin [Lipitor] 10 MG tablet 10 mg PO HS Qty: 0 omeprazole 40 MG capsule,delayed release(DR/EC) 40 mg PO BID Qty: 0 aspirin 81 MG tablet,chewable 81 mg PO BID Qty: 0 Centrum Silver Tablet 1 tab PO DAILY Qty: 0 amlodipine [Norvasc] 2.5 mg Tablet 2.5 mg PO DAILY cholecalciferol (vitamin D3) [Vitamin D3] 2,000 unit Tablet 2,000 unit PO DAILY amlodipine [Norvasc] 5 mg Tablet 5 mg PO DAILY famotidine [Pepcid] 20 mg Tablet 20 mg PO DAILY tamsulosin [Flomax] 0.4 mg Capsule 0.4 mg PO DAILY Fish Oil Capsule 1,000 mg PO DAILY tadalafil [Cialis] 5 mg Tablet 5 mg PO DAILY PRN (Reason: Erectile Dysfunction) Rx Instructions: administer approximately 30min before sexual activity; do not use more than 1 dose per 24hrs metoprolol tartrate 25 mg tablet 25 mg PO PRN PRN (Reason: For atrial fibrillation episode) Qty: 14 0RF Referrals: Braydon Sanabria MD [Primary Care Provider] - Stand Alone Forms: Patient Portal/API
== END 2022-10-23 16:08 | disposition home or self-care (01) ==
PROVIDERS: Emergency Provider Emergency Medicine; Family Provider Internal Medicine; PCP Internal Medicine
DX: I49.3 Ventricular premature depolarization (principal)
CPT/HCPCS: 36415; 71045; 80053; 82550; 83690; 83735; 84484; 85025; 85610; 85730; 93005; 93010; 99283; 99284

== ENCOUNTER 2022-11-25 12:41 | Day surgery (SDC) | payer MEDICARE, OTHER, SELFPAY ==
[2019-06-04 05:12] VITALS: BMI 33.7
--- NOTE | 2022-11-25 | PATH_ITS ---
[facility] Accession Number: [id number] No. of containers..03 Tissue . 01 Material submitted: . PART A: gastrointestinal site - GASTRIC POLYPS PART B: esophagus - ESOPHAGUS PART C: APPENDACEAL - APPENDACEAL POLYP . 01 Diagnosis: A. Stomach, Polyps: Fundic gland polyps. No evidence of Helicobacter organisms on H/E stain. Negative for intestinal metaplasia. Negative for dysplasia and malignancy. . B. Esophagus, Biopsy: Columnar mucosa with no diagnostic abnormality. Negative for intestinal metaplasia. Negative for dysplasia and malignancy. . C. Appendiceal, Polyp: Sessile serrated adenoma. [facility] 12/07/2022 1557 Local . 01 Electronically signed: . Krystina Rich MD, Pathologist NPI- [id number] . 01 Gross description: . Part A: GASTRIC POLYPS: Received in formalin is 2 fragment(s) of albarran, soft tissue measuring 0.3 x 0.3 x 0.2 cm to 0.3 x 0.2 x 0.2 cm submitted entirely in 1 cassette(s) Part B: ESOPHAGUS: Received in formalin is 2 fragment(s) of albarran, soft tissue measuring 0.4 x 0.2 x 0.2 cm to 0.3 x 0.2 x 0.1 cm submitted entirely in 1 cassette(s) Part C: APPENDACEAL POLYP: Received in formalin is 1 fragment(s) of albarran, soft tissue measuring 0.5 x 0.5 x 0.4 cm which is bisected and submitted entirely in 1 cassette(s) /AAY 12/01/2022 1213 Local . 01 Pathologist provided ICD-10: D12.1, K31.7 . 01 CPT . 547047, 548587, [id number] Specimen Comment: A courtesy copy of this report has been sent to [phone] Performed at: 01 [facility] [address] [place] [address], [place], [place] [id number] MD Garth Lomax MD Phone: [phone]
[2022-11-25] MEDS: LACTATED RINGERS 1,000 ML 42 ML IV (13:03)
--- NOTE | 2022-11-25 13:13 | PM.PREOP ---
Pre-operative Note COVID-19 Result date/Date tested (Pos, Neg/Pending): 11/25/22 Interval Note History & Physical reviewed/Exam performed by Physician: Yes Changes to H&P: No ASA Class (for procedural sedation): III
[2022-11-25 13:14] VITALS: BP 169/58; PULSE 54; RESP 16; TEMP 36.2; O2SAT 96; BMI 31.5
--- NOTE | 2022-11-25 13:14 | PM.OP.EC ---
Operative Date/Time/Diagnoses Date of procedure: 11/25/22 Pre-op diagnosis: See indication and findings Procedure & Clinicians Study performed: EGD and colonoscopy Indications: GE reflux and history of colon polyps with a tubular adenoma Surgeon: Gregory Al Procedure Notes Procedure in detail: After informed consent was obtained the patient was placed in left lateral decubitus position. The video upper scope was placed into the oropharynx and with the patient's help swelled into the esophagus. The esophagus stomach and duodenum were carefully examined. On withdrawal retroflexed view the GE junction was performed. The patient was then turned and the colonoscope substituted. The scope was easily passed the cecum. Preparation was good. On slow withdrawal mucosa was carefully examined. The scope was removed. The patient tolerated procedure well. Blood loss none Complications none Sedation mac Findings EGD 1. One 1 cm tongue of tissue above the level of the gastric folds biopsies taken to rule out Hensley's esophagus 2. 3 cm hiatal hernia 4. Multiple small to medium gastric polyps biopsies taken to rule out adenoma 5. Normal duodenal bulb and sweep Colonoscopy 1. 1.2 cm bilobed polyp at the appendiceal orifice. This appeared adenomatous. This was injected with 2 cc of normal saline and removed completely with a hot snare under an endocut setting 2. Otherwise negative colonoscopy to cecum He may restart his Eliquis in 2 days He should not have follow-up EGD and colonoscopy in the future
[2022-11-25 14:19] VITALS: BP 119/65; PULSE 61; RESP 12; TEMP 36.2; O2SAT 96
[2022-11-25 14:23] VITALS: BP 113/55; PULSE 61; RESP 12; O2SAT 96
[2022-11-25 14:28] VITALS: BP 107/49; PULSE 57; RESP 13; O2SAT 96
[2022-11-25 14:32] VITALS: BP 117/59; PULSE 58; RESP 12; O2SAT 95
[2022-11-25 15:00] VITALS: BP 121/62; PULSE 65; RESP 15; TEMP 36.6; O2SAT 96
== END 2022-11-25 15:05 | disposition home or self-care (01) ==
PROVIDERS: Family Provider Internal Medicine; PCP Internal Medicine; Referring Provider Internal Medicine Gastroenterology; Visit Provider Internal Medicine Gastroenterology
PROC: 0DJ08ZZ Inspection of Upper Intestinal Tract, Via Natural or Artificial Opening Endoscopic (ICD-10-PCS; CPT 43235; principal; 2022-11-25 14:00)
PROC: 0DJD8ZZ Inspection of Lower Intestinal Tract, Via Natural or Artificial Opening Endoscopic (ICD-10-PCS; CPT 45378; 2022-11-25 14:00)
DX: Z12.11 Encounter for screening for malignant neoplasm of colon (principal); Z86.010 Personal history of colon polyps; K21.9 Gastro-esophageal reflux disease without esophagitis; G47.33 Obstructive sleep apnea (adult) (pediatric); I48.91 Unspecified atrial fibrillation; K44.9 Diaphragmatic hernia without obstruction or gangrene; K31.7 Polyp of stomach and duodenum; D12.1 Benign neoplasm of appendix
CPT/HCPCS: 45381; 45385; 43239; J2704

== ENCOUNTER 2023-01-26 13:42 | Emergency (ER) | payer MEDICARE, OTHER, SELFPAY ==
[2019-06-04 05:12] VITALS: BMI 33.7
[2023-01-26 14:03] VITALS: BP 146/67; PULSE 48; RESP 16; TEMP 36.6; O2SAT 96; BMI 31.1
[2023-01-26 14:36] LABS: Add Manual Diff / Slide Review NO; Basophils Absolute Auto 100 /uL (0-100); Basophils Percent Auto 0.7 % (0-2); Eosinophils Absolute Auto 100 /uL (0-450); Eosinophils Percent Auto 0.7 % (2-4); Hemoglobin 12.6 g/dL (13.5-17.5); Lymphocytes Absolute Auto 3000 /uL (1100-4500); Lymphocytes Percent Auto 37.1 % (25-40); Mean Corpuscular Hemoglobin 29.1 PG (26-34); Mean Corpuscular Volume 85.6 fL (80-100); Monocytes Absolute Auto 700 /uL (0-900); Monocytes Percent Auto 9.2 % (3-14); Neutrophils Absolute Auto 4200 /uL (1500-7000); Neutrophils Percent Auto 52.3 % (50-75); Platelet Count 159 X10^3/uL (150-400); Red Blood Cell Count 4.32 X10^6/uL (4.5-5.9); White Blood Cell Count 8.1 X10^3/uL (4.5-11.0)
[2023-01-26 14:50] LABS: Alanine Aminotransferase 23 IU/L (<50); Albumin 3.9 g/dL (3.5-5.0); Albumin Globulin Ratio 1.3 (1.0-2.8); Alkaline Phosphatase 51 U/L (38-126); Aspartate Aminotransferase 25 IU/L (17-59); BUN Creatinine Ratio 22.1 (6-22); Bilirubin Total 0.7 mg/dL (0.2-1.3); Blood Urea Nitrogen 19 mg/dL (9-20); Calcium 9.3 mg/dL (8.4-10.2); Carbon Dioxide 27 mmol/L (22-32); Chloride 101 mmol/L (98-107); Estimated Glomerular Filt Rate > 60 mL/min (>60); Globulin 2.9 g/dL (1.7-4.1); Glucose 104 mg/dL (80-110); HEMOLYSIS < 15 (0-50); Lipase 86 U/L (23-300); Potassium 4.2 mmol/L (3.4-5.1); Sodium 135 mmol/L (137-145); Total Protein 6.8 g/dL (6.3-8.2)
--- NOTE | 2023-01-26 15:34 | DI.CT.S_ITS ---
PROCEDURE: CT ABDOMEN PELVIS W CON INDICATIONS: Left sided abd pain TECHNIQUE: After the administration of IV contrast, axial sections were acquired from the lung bases to the pubic symphysis. Coronal and sagittal reformats were performed. For radiation dose reduction, the following was used: automated exposure control, adjustment of mA and/or kV according to patient size. COMPARISON: [facility], CT, CT ABDOMEN PELVIS W CON, 06/04/2019, 2:16. [facility], CT, CT ABDOMEN PELVIS W CON, 05/29/2021, 12:58. FINDINGS: Image quality: Excellent. Lung bases: A small hiatal hernia is incidentally noted. Heart: No significant findings. ABDOMEN: Liver: Likely liver cysts are again seen. The liver demonstrates normal size and demonstrates no frankly suspicious lesion. Gallbladder: Removed. Biliary ducts: Unremarkable. Pancreas: Unremarkable. Spleen: Unremarkable. Incidental note is made of an accessory splenule along the anterior aspect of the primary spleen. Adrenal Glands: Unremarkable. Kidneys and Ureters: There is a stable right renal cyst seen measuring water density and up to 4.3 cm. The kidneys demonstrate normal size and enhance symmetrically. There is no hydronephrosis. Stomach and Bowel: Minimal sigmoid diverticulosis is seen, without findings of active diverticulitis. The more proximal colon is unremarkable. The volume of stool within the colon is not excessive. No dilated loops of small bowel are seen. The stomach is decompressed at the time of this study, limiting its evaluation. Peritoneum: No abnormal intraperitoneal fluid. No free air. Ventral Wall: No hernia. Abdominal Nodes: No retroperitoneal or mesenteric adenopathy by size criteria. Vessels: Aorta and inferior vena cava are normal in size. Atherosclerotic calcification is noted. PELVIS: Pelvic Organs: Unremarkable. Bladder: Unremarkable. Pelvic Nodes: No enlarged lymph nodes. Miscellaneous: No inguinal hernias are seen. Bones: Mild levoconvex scoliotic curvature is noted. Degenerative changes are seen throughout, which are worst involving the L4-L5 level. This patient has transitional lumbar anatomy. For the purposes of this examination, the level with the last well-developed disc space is considered to be L5-S1. By this numbering scheme, the L5 level is transitional and is relatively highly sacralized. IMPRESSION: A cause of left-sided abdominal pain can be seen. Minimal sigmoid diverticulosis is seen, without findings of active diverticulitis. 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 on 01/26/2023 at 16:08 Approved by: Palmer Ludwig M.D. on 01/26/2023 at 16:15
--- NOTE | 2023-01-26 16:21 | ED.ABDPAIN ---
HPI - Abdominal Pain <Tony Goodman PA-C - Last Filed: 01/26/23 18:33> General Chief Complaint: Abdominal Pain Stated Complaint: abd pain T-21 Time Seen by Provider: 01/26/23 14:51 Source: patient Mode of arrival: Ambulatory History of Present Illness HPI narrative: 82-year-old male with past medical history AFib, on Eliquis presents to the ED with 3 weeks of left-sided abdominal pain. Patient states that the pain mostly presents in the left upper quadrant, but however does move around to the rest of the abdomen, also sometimes moves to the left side of his back. Patient states that he has been more constipated than normal over the last 3 months. Patient took some Dulcolax 3 days ago, had some soft stools. Patient denies fever, chills, chest pain, shortness of breath, nausea, vomiting, diarrhea, hematochezia, melena, lightheadedness, dizziness, syncope. No aggravating or alleviating factors noted. Patient has not had any abdominal surgeries. Patient called his PCP this morning requesting a scan, PCP directed him to the ED. Related Data Home Medications Medication Instructions Recorded Confirmed atorvastatin 10 mg tablet (Lipitor) 10 mg PO HS ##0 08/11/12 11/25/22 dmnpfhzasxxi-alskotpu-zulykw tablet 1 tab PO DAILY ##0 08/11/12 11/25/22 omeprazole 40 mg capsule,delayed 40 mg PO BID ##0 08/11/12 11/25/22 release telmisartan 80 mg tablet (Micardis) 80 mg PO Q DAY ##0 08/11/12 11/25/22 amlodipine 2.5 mg tablet (Norvasc) 2.5 mg PO DAILY 06/04/19 11/25/22 cholecalciferol (vitamin D3) 50 2,000 unit PO DAILY 06/04/19 11/25/22 mcg (2,000 unit) tablet (Vitamin D3) amlodipine 5 mg tablet (Norvasc) 5 mg PO DAILY 10/15/21 11/25/22 famotidine 20 mg tablet (Pepcid) 40 mg PO DAILY 10/15/21 11/25/22 tamsulosin 0.4 mg capsule (Flomax) 0.4 mg PO DAILY 10/15/21 11/25/22 apixaban 5 mg tablet (Eliquis) 5 mg PO BID 11/25/22 11/25/22 Previous Rx's Medication Instructions Recorded metoprolol tartrate 25 mg tablet 25 mg PO PRN PRN For atrial 10/16/21 fibrillation episode #14 tabs Allergies Allergy/AdvReac Type Severity Reaction Status Date / Time No Known Drug Allergies Allergy Verified 11/25/22 13:04 Review of Systems <Tony Goodman PA-C - Last Filed: 01/26/23 18:33> Constitutional Constitutional: Denies chills, Denies fatigue, Denies fever(s), Denies frequent falls, Denies lethargy and Denies weakness Eyes Eyes: Denies change in vision, Denies eye discharge, Denies irritation and Denies loss of vision ENT Ears, Nose, Mouth, and Throat: Denies change in voice, Denies dizziness, Denies neck pain, Denies sore throat and Denies throat swelling Cardiovascular Cardiovascular: Denies chest pain, Denies irregular heart rhythm, Denies lightheadedness, Denies palpitations, Denies dyspnea, Denies dyspnea on exertion and Denies orthopnea Respiratory Respiratory: Denies cough, Denies dyspnea, Denies dyspnea on exertion and Denies wheezing Gastrointestinal Gastrointestinal: Reports abdominal pain, Denies change in bowel habits, Reports constipation, Denies diarrhea, Denies nausea and Denies vomiting Musculoskeletal Musculoskeletal: Denies neck pain and Denies numbness Integumentary/Breasts Skin/Breast: Denies pruritus, Denies erythema, Denies rash and Denies wounds Neurologic Neurologic: Denies behavioral changes, Denies confusion, Denies dizziness, Denies frequent falls, Denies loss of vision, Denies numbness and Denies weakness Psychiatric Psychiatric: Denies anxiety, Denies behavioral changes, Denies confusion, Denies depression, Denies homicidal ideation and Denies suicidal ideation Endocrine Endocrine: Denies fatigue, Denies flushing and Denies palpitations Hematologic/Lymphatic Hematologic/Lymphatic: Denies easy bruising Allergic/Immunologic Allergic/Immunologic: Denies urticaria, Denies throat swelling and Denies wheezing Patient History <Tony Goodman PA-C - Last Filed: 01/26/23 18:33> Medical History (Updated 01/26/23 @ 17:26 by Tony Goodman PA-C) Hiatal hernia Squamous cell carcinoma Cataract Sleep apnea Acid reflux High cholesterol High blood pressure Surgical History History of sinus surgery History of uvulopalatopharyngoplasty Social History household members: spouse Smoking Status: Former smoker alcohol intake: current Smoking Status: Former smoker alcohol intake frequency: a few times a week Substance Use Type: does not use Exam <Tony Goodman PA-C - Last Filed: 01/26/23 18:33> Narrative Exam Narrative: Const General:?cooperative, healthy appearing and comfortable [facility] Head:?normal to inspection Ears:?hearing grossly normal bilaterally Nose:?external nose normal Face and sinus:?normal facial exam and sinuses nontender Mouth:?oral mucosae normal Throat:?posterior oropharynx normal Eyes General:?appearance normal, both eyes and all related structures Neck Neck:?normal visual inspection and no lymphadenopathy noted Resp Effort & Inspection:?normal respiratory effort Auscultation:?clear to auscultation bilaterally Cardio Rate:?regular rate Rhythm:?regular rhythm GI Abdomen is soft, nondistended, nontender to palpation. There is no CVA tenderness. Neuro General:?patient alert, patient awake and patient oriented x3 Initial Vital Signs Initial Vital Signs: Vital Signs Temperature 97.8 F 01/26/23 14:03 Pulse Rate 48 L 01/26/23 14:03 Respiratory Rate 16 01/26/23 14:03 Blood Pressure 146/67 H 01/26/23 14:03 Pulse Oximetry 96 01/26/23 14:03 Oxygen Delivery Method Room Air 01/26/23 14:03 <Braydon Forbes MD - Last Filed: 01/27/23 07:20> Initial Vital Signs Initial Vital Signs: Vital Signs Temperature 97.8 F 01/26/23 14:03 Pulse Rate 48 L 01/26/23 14:03 Respiratory Rate 16 01/26/23 14:03 Blood Pressure 146/67 H 01/26/23 14:03 Pulse Oximetry 96 01/26/23 14:03 Oxygen Delivery Method Room Air 01/26/23 14:03 Course <Tony Goodman PA-C - Last Filed: 01/26/23 18:33> Orders Ordered: Discontinued Medications Ondansetron HCl (Ondansetron 4 Mg Odt) 4 mg PO NOW PRN PRN Reason: Nausea And Vomiting Ondansetron HCl (Ondansetron 4 Mg/2 Ml Inj) 4 mg IV NOW PRN PRN Reason: Nausea And Vomiting Vital Signs Vital signs: Vital Signs - 8 hr 01/26/23 14:03 Temperature 97.8 F Pulse Rate 48 L Respiratory Rate 16 Blood Pressure 146/67 H Pulse Oximetry 96 Oxygen Delivery Method Room Air <Braydon Forbes MD - Last Filed: 01/27/23 07:20> Orders Ordered: Discontinued Medications Ondansetron HCl (Ondansetron 4 Mg Odt) 4 mg PO NOW PRN PRN Reason: Nausea And Vomiting Ondansetron HCl (Ondansetron 4 Mg/2 Ml Inj) 4 mg IV NOW PRN PRN Reason: Nausea And Vomiting Vital Signs Vital signs: Vital Signs - 8 hr 01/26/23 14:03 Temperature 97.8 F Pulse Rate 48 L Respiratory Rate 16 Blood Pressure 146/67 H Pulse Oximetry 96 Oxygen Delivery Method Room Air MDM - Abdominal Pain <Tony Goodman PA-C - Last Filed: 01/26/23 18:33> Lab Data 01/26/23 14:20 01/26/23 14:20 Labs: Lab Results 01/26/23 Range/Units 14:20 WBC 8.1 (4.5-11.0) X10^3/uL RBC 4.32 L (4.5-5.9) X10^6/uL Hgb 12.6 L (13.5-17.5) g/dL Hct 37.0 L (41-53) % MCV 85.6 (80-100) fL MCH 29.1 (26-34) PG MCHC 34.0 (30-36) % RDW 14.0 (11.6-14.8) % Plt Count 159 (150-400) X10^3/uL Neut % (Auto) 52.3 (50-75) % Lymph % (Auto) 37.1 (25-40) % [place] % (Auto) 9.2 (3-14) % Eos % (Auto) 0.7 L (2-4) % Baso % (Auto) 0.7 (0-2) % Neut # (Auto) 4200 (2617-9002) /uL Lymph # (Auto) 3000 (1419-4832) /uL [place] # (Auto) 700 (0-900) /uL Eos # (Auto) 100 (0-450) /uL Baso # (Auto) 100 (0-100) /uL Sodium 135 L (137-145) mmol/L Potassium 4.2 (3.4-5.1) mmol/L Chloride 101 (98-107) mmol/L Carbon Dioxide 27 (22-32) mmol/L BUN 19 (9-20) mg/dL Creatinine 0.86 (0.66-1.25) mg/dL Estimated GFR > 60 (>60) mL/min BUN/Creatinine Ratio 22.1 H (6-22) Glucose 104 (80-110) mg/dL Calcium 9.3 (8.4-10.2) mg/dL Total Bilirubin 0.7 (0.2-1.3) mg/dL AST 25 (17-59) IU/L ALT 23 (<50) IU/L Alkaline Phosphatase 51 (38-126) U/L Total Protein 6.8 (6.3-8.2) g/dL Albumin 3.9 (3.5-5.0) g/dL Globulin 2.9 (1.7-4.1) g/dL Albumin/Globulin Ratio 1.3 (1.0-2.8) Lipase 86 (23-300) U/L Point of care testing: Urine Dip Bedside Urine Glucose Negative Bedside Urine Bilirubin - Negative Bedside Urine Ketone - Negative Urine Specific [place] 1.010 Bedside Urine Occult Blood - Negative Bedside Urine pH 6.0 Bedside Urine Protein - Negative Bedside Urine Urobilinogen - Negative Bedside Urine Nitrite - Negative Bedside Urine Leukocytes - Negative Esterase MDM Narrative Medical decision making narrative: 82-year-old male with past medical history AFib, on Eliquis presents to the ED with 3 weeks of left-sided abdominal pain. Concern for constipation versus diverticulitis versus pancreatitis versus gastritis versus PUD versus UTI versus malignancy versus other intra-abdominal pathology versus other. Will obtain labs, lipase, UA, CT abdomen pelvis. Will reassess. UA without infection. Labs within normal limits. Lipase within normal limits. No acute findings on CT to explain patient's symptoms. There were some incidental findings such as a small hiatal hernia, liver cysts, accessory splenule, stable right renal cyst, scoliotic curvature. Patient's symptoms could be due to constipation versus other functional causes. Discussed findings with patient. Patient agrees to follow-up with his PCP as soon as possible. Recommend bowel regimen with Dulcolax and MiraLax nightly. Recommend adequate water consumption. ED return precautions were discussed with patient. Patient verbalized understanding. Medical records reviewed: Yes <Braydon Forbes MD - Last Filed: 01/27/23 07:20> Lab Data Labs: Lab Results 01/26/23 Range/Units 14:20 WBC 8.1 (4.5-11.0) X10^3/uL RBC 4.32 L (4.5-5.9) X10^6/uL Hgb 12.6 L (13.5-17.5) g/dL Hct 37.0 L (41-53) % MCV 85.6 (80-100) fL MCH 29.1 (26-34) PG MCHC 34.0 (30-36) % RDW 14.0 (11.6-14.8) % Plt Count 159 (150-400) X10^3/uL Neut % (Auto) 52.3 (50-75) % Lymph % (Auto) 37.1 (25-40) % [place] % (Auto) 9.2 (3-14) % Eos % (Auto) 0.7 L (2-4) % Baso % (Auto) 0.7 (0-2) % Neut # (Auto) 4200 (8351-6897) /uL Lymph # (Auto) 3000 (6287-2745) /uL [place] # (Auto) 700 (0-900) /uL Eos # (Auto) 100 (0-450) /uL Baso # (Auto) 100 (0-100) /uL Sodium 135 L (137-145) mmol/L Potassium 4.2 (3.4-5.1) mmol/L Chloride 101 (98-107) mmol/L Carbon Dioxide 27 (22-32) mmol/L BUN 19 (9-20) mg/dL Creatinine 0.86 (0.66-1.25) mg/dL Estimated GFR > 60 (>60) mL/min BUN/Creatinine Ratio 22.1 H (6-22) Glucose 104 (80-110) mg/dL Calcium 9.3 (8.4-10.2) mg/dL Total Bilirubin 0.7 (0.2-1.3) mg/dL AST 25 (17-59) IU/L ALT 23 (<50) IU/L Alkaline Phosphatase 51 (38-126) U/L Total Protein 6.8 (6.3-8.2) g/dL Albumin 3.9 (3.5-5.0) g/dL Globulin 2.9 (1.7-4.1) g/dL Albumin/Globulin Ratio 1.3 (1.0-2.8) Lipase 86 (23-300) U/L Point of care testing: Urine Dip Bedside Urine Glucose Negative Bedside Urine Bilirubin - Negative Bedside Urine Ketone - Negative Urine Specific [place] 1.010 Bedside Urine Occult Blood - Negative Bedside Urine pH 6.0 Bedside Urine Protein - Negative Bedside Urine Urobilinogen - Negative Bedside Urine Nitrite - Negative Bedside Urine Leukocytes - Negative Esterase Discharge Plan Departure Patient Disposition: Home Clinical Impression: Abdominal pain Qualifiers: Abdominal location: left upper quadrant Qualified Code(s): R10.12 - Left upper quadrant pain Instructions: DI for Abdominal Pain-Adult Activity Restrictions/Additional Instructions: You were evaluated in the ED for abdominal pain. Your labs, urine, CT abdomen pelvis did not show any abnormalities to explain your symptoms. Your symptoms could likely be due to constipation or intestinal gas. Please follow-up with your PCP for further evaluation. You may continue to take Dulcolax and also add MiraLax nightly for a good bowel regimen. Please continue to drink lots of water and consume fiber. Return to the ED if you have worsening symptoms, chest pain, shortness of breath, persistent vomiting. Prescriptions: No Action telmisartan [Micardis] 80 MG tablet 80 mg PO Q DAY Qty: 0 atorvastatin [Lipitor] 10 MG tablet 10 mg PO HS Qty: 0 omeprazole 40 MG capsule,delayed release(DR/EC) 40 mg PO BID Qty: 0 [id number]-[id number]-aftxdd Tablet 1 tab PO DAILY Qty: 0 amlodipine [Norvasc] 2.5 mg Tablet 2.5 mg PO DAILY cholecalciferol (vitamin D3) [Vitamin D3] 2,000 unit Tablet 2,000 unit PO DAILY amlodipine [Norvasc] 5 mg Tablet 5 mg PO DAILY famotidine [Pepcid] 20 mg Tablet 40 mg PO DAILY tamsulosin [Flomax] 0.4 mg Capsule 0.4 mg PO DAILY metoprolol tartrate 25 mg tablet 25 mg PO PRN PRN (Reason: For atrial fibrillation episode) Qty: 14 0RF Rx Instructions: only takes if has an episode of atrial fib taken 7 years ago, Eliquis 5 mg tablet 5 mg PO BID Referrals: Braydon Sanabria MD [Primary Care Provider] - Stand Alone Forms: Patient Portal/API ED Sign-out <Braydon Forbes MD - Last Filed: 01/27/23 07:20> Cosign ED Attending Cosignature Attestation: I was immediately available in the department for consultation. ?This documentation has been reviewed and I agree with assessment and plan. Supervised by Braydon Forbes MD
== END 2023-01-26 18:08 | disposition home or self-care (01) ==
PROVIDERS: Emergency Medicine; Emergency Provider Student in an Organized Health Care Education/Training Program; Family Provider Internal Medicine; PCP Internal Medicine
DX: R10.12 Left upper quadrant pain (principal); Z79.01 Long term (current) use of anticoagulants; Z79.899 Other long term (current) drug therapy
CPT/HCPCS: 36415; 74177; 80053; 81003; 83690; 85025; 93005; 99284

== ENCOUNTER 2023-09-22 10:44 | Day surgery (SDC) | payer MEDICARE, OTHER, SELFPAY ==
[2019-06-04 05:12] VITALS: BMI 33.7
[2023-09-22 11:07] VITALS: BP 154/72; PULSE 51; RESP 20; TEMP 36.3; O2SAT 98
[2023-09-22] MEDS: LACTATED RINGERS 1,000 ML 42 ML IV (11:13)
--- NOTE | 2023-09-22 11:36 | PM.OP.COLON ---
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 [place] to be completely removed. Need to check to ensure complete removal Surgeon: Gregory Al Procedure Notes Procedure in detail: After informed consent was obtained patient was placed in left lateral decubitus position. The video colonoscope was introduced the rectum slowly advanced cecum. Preparation was good. On slow withdrawal mucosa was carefully examined. The scope was removed. The patient tolerated procedure well. Blood loss none Complications none Sedation mac Findings 1. Completely normal appendiceal orifice free of any residual polyp 2. Scattered diverticulosis 3. Otherwise negative colonoscopy to cecum This will be Braydon's final colonoscopy.
--- NOTE | 2023-09-22 11:38 | PM.HP.1 ---
History of Present Illness History of Present Illness Date Patient Seen: 09/22/23 Chief complaint: SDC Narrative: History of polyp at the appendiceal orifice felt to be completely removed need to check to ensure complete removal [facility] Medical History (Updated 02/10/23 @ 00:01 by ) Hiatal hernia Squamous cell carcinoma Cataract Sleep apnea Acid reflux High cholesterol High blood pressure Surgical History History of sinus surgery History of uvulopalatopharyngoplasty Social History household members: spouse Smoking Status: Never smoker alcohol intake: current Meds Home Medications and Allergies Home Medications Medication Instructions Recorded Confirmed Type atorvastatin 10 mg tablet (Lipitor) 10 mg PO HS ##0 08/11/12 09/22/23 History aoztqsgqmrfm-epckmpcr-xykxjp tablet 1 tab PO DAILY ##0 08/11/12 09/22/23 History omeprazole 40 mg capsule,delayed 40 mg PO BID ##0 08/11/12 09/22/23 History release telmisartan 80 mg tablet (Micardis) 80 mg PO Q DAY ##0 08/11/12 09/22/23 History amlodipine 2.5 mg tablet (Norvasc) 2.5 mg PO DAILY 06/04/19 09/22/23 History cholecalciferol (vitamin D3) 50 2,000 unit PO DAILY 06/04/19 09/22/23 History mcg (2,000 unit) tablet (Vitamin D3) amlodipine 5 mg tablet (Norvasc) 5 mg PO DAILY 10/15/21 09/22/23 History famotidine 20 mg tablet (Pepcid) 40 mg PO DAILY 10/15/21 09/22/23 History tamsulosin 0.4 mg capsule (Flomax) 0.4 mg PO DAILY 10/15/21 09/22/23 History metoprolol tartrate 25 mg tablet 25 mg PO PRN PRN For atrial 10/16/21 09/22/23 Rx fibrillation episode #14 tabs apixaban 5 mg tablet (Eliquis) 5 mg PO BID 11/25/22 09/22/23 History Allergies Allergy/AdvReac Type Severity Reaction Status Date / Time No Known Drug Allergies Allergy Verified 09/22/23 10:57 Exam Vital Signs (past 8 hours): - 09/22/23 11:07 Temperature 97.3 F L Pulse Rate 51 L Respiratory Rate 20 Blood Pressure 154/72 H Pulse Oximetry 98 Oxygen Delivery Method Room Air Oxygen Delivery Method Room Air Narrative Exam Narrative: Oropharynx free of lesions Chest clear to auscultation percussion Cardiac exam reveals no S3 or murmur Assessment & Plan Assessment & Plan narrative: Need to ensure complete removal of adenomatous polyp at the appendiceal orifice. Risks, benefits, alternatives have been explained. If felt to be completely removed this should be his last colonoscopy.
[2023-09-22 11:58] VITALS: BP 136/52; PULSE 48; RESP 12; TEMP 36.2; O2SAT 95
[2023-09-22 12:03] VITALS: BP 118/47; PULSE 43; RESP 14; O2SAT 94
[2023-09-22 12:09] VITALS: BP 130/48; PULSE 66; RESP 14; TEMP 36.3; O2SAT 94
[2023-09-22 12:14] VITALS: BP 138/53; PULSE 52; RESP 18; O2SAT 97
== END 2023-09-22 12:30 | disposition home or self-care (01) ==
PROVIDERS: Family Provider Internal Medicine; PCP Internal Medicine; Referring Provider Internal Medicine Gastroenterology; Visit Provider Internal Medicine Gastroenterology
PROC: 0DJD8ZZ Inspection of Lower Intestinal Tract, Via Natural or Artificial Opening Endoscopic (ICD-10-PCS; CPT 45378; principal; 2023-09-22 11:30)
DX: Z12.11 Encounter for screening for malignant neoplasm of colon (principal); Z86.010 Personal history of colon polyps; K57.30 Diverticulosis of large intestine without perforation or abscess without bleeding
CPT/HCPCS: G0105; J2704

== ENCOUNTER 2024-08-29 11:07 | Emergency (ER) | payer MEDICARE, OTHER, SELFPAY ==
[2019-06-04 05:12] VITALS: BMI 33.7
[2024-08-29] VITALS (15 sets, daily range): BP systolic 135–193; BP diastolic 63–81; PULSE 39–51; RESP 10–18; TEMP 36.6; O2SAT 94–99; BMI 33.0
--- NOTE | 2024-08-29 12:18 | ED_ITS ---
HPI - Back Pain/Injury General Chief Complaint: Back Pain/Injury Stated Complaint: Severe upper back pain Time Seen by Provider: 08/29/24 11:54 History of Present Illness HPI Narrative: Patient brought here by [id number] for complaints of muscle spasm bilateral lumbar muscles for the past 4 weeks. No known injury. No prior history MRI or back surgery. No fever chills. No abdominal pain no chest pain. No numbness or tingling to legs or feet. No saddle paresthesia. Patient has pain with any movement of the lower back. Related Data Home Medications Medication Instructions Recorded Confirmed atorvastatin 10 mg tablet (Lipitor) 10 mg PO HS ##0 08/11/12 09/22/23 [id number] tablet 1 tab PO DAILY ##0 08/11/12 09/22/23 omeprazole 40 mg capsule,delayed 40 mg PO BID ##0 08/11/12 09/22/23 release telmisartan 80 mg tablet (Micardis) 80 mg PO Q DAY ##0 08/11/12 09/22/23 amlodipine 2.5 mg tablet (Norvasc) 2.5 mg PO DAILY 06/04/19 09/22/23 cholecalciferol (vitamin D3) 50 2,000 unit PO DAILY 06/04/19 09/22/23 mcg (2,000 unit) tablet (Vitamin D3) amlodipine 5 mg tablet (Norvasc) 5 mg PO DAILY 10/15/21 09/22/23 famotidine 20 mg tablet (Pepcid) 40 mg PO DAILY 10/15/21 09/22/23 tamsulosin 0.4 mg capsule (Flomax) 0.4 mg PO DAILY 10/15/21 09/22/23 apixaban 5 mg tablet (Eliquis) 5 mg PO BID 11/25/22 09/22/23 Previous Rx's Medication Instructions Recorded metoprolol tartrate 25 mg tablet 25 mg PO PRN PRN For atrial 10/16/21 fibrillation episode #14 tabs baclofen 20 mg tablet 20 mg PO TID PRN pain (scale score 08/29/24 4-6) #20 tabs methylprednisolone 4 mg tablets in See Rx Instructions PO .COMPLEX 08/29/24 a dose pack (Medrol (Jean Marie)) #21 ea Allergies Allergy/AdvReac Type Severity Reaction Status Date / Time No Known Drug Allergies Allergy Verified 09/22/23 10:57 Review of Systems Review of Systems Narrative: GENERAL: Negative chills, fatigue, malaise, fever, sweats. HEENT: Negative sinus pain, ear pain, sore throat RESPIRATORY: Negative dyspnea, cough CARDIOVASCULAR: Negative chest pain, palpitations GASTROINTESTINAL: Negative vomiting, nausea, abdominal pain : Negative dysuria, frequency, hematuria MUSCULOSKELETAL: Positive back, muscle or bony pain SKIN: Negative rash, skin lesions NEUROLOGIC: Negative weakness, numbness ROS Unobtainable: All systems reviewed & are unremarkable except as noted in HPI and below Patient History Medical History (Updated 08/29/24 @ 15:35 by Braydon Forbes MD) Hiatal hernia Squamous cell carcinoma Cataract Sleep apnea Acid reflux High cholesterol High blood pressure Surgical History History of sinus surgery History of uvulopalatopharyngoplasty Social History household members: spouse alcohol intake: current alcohol intake frequency: a few times a week Exam Narrative Exam Narrative: GENERAL: in no distress, not toxic not dyspneic HEAD: Normocephalic. EYES: Pupils equal round ENT: Mucous membranes moist. NECK: Trachea midline. CARDIOVASCULAR: Regular rate and rhythm RESPIRATORY: Clear to auscultation. Breath sounds equal bilaterally. No wheezes, rales, or rhonchi. GASTROINTESTINAL: Abdomen soft, non-tender EXTREMITIES: No gross deformities. BACK: No flank tenderness. Very limited range of motion due to lower paralumbar muscle spasm/pain. No midline tenderness or step-off. Painful when trying to sit up on his own, needs assist., no pain with bilateral straight leg raises. NEURO: AOx4. Clear speech, light touch intact to bilateral legs with strong bilateral patellar reflexes and ankle flexion-extension. SKIN: Warm and dry PSYCH: Not anxious, is cooperative Initial Vital Signs Initial Vital Signs: Vital Signs Pulse Rate 51 L 08/29/24 11:13 Pulse Oximetry 99 08/29/24 11:13 Course Orders Ordered: ED Orders 08/29/24 12:19 CT abdomen pelvis w con Stat 08/29/24 14:05 CBC Auto Diff [Complete Blood Count AUTO DIFF] Stat CMP [Comprehensive Metabolic Panel] Stat Lipase Stat Discontinued Medications Diazepam (Diazepam 5 Mg Tablet) 10 mg PO NOW ONE Stop: 08/29/24 12:19 Last Admin: 08/29/24 12:53 Dose: 10 mg Documented By: EBONI Ketorolac Tromethamine (Ketorolac 30 Mg/Ml Vial) 15 mg IV NOW ONE Stop: 08/29/24 12:19 Last Admin: 08/29/24 12:53 Dose: 15 mg Documented By: EBONI Methylprednisolone (Methylprednisolone 125 Mg/2 Ml Vial) 125 mg IV NOW ONE Stop: 08/29/24 14:12 Last Admin: 08/29/24 15:29 Dose: 125 mg Documented By: EBONI Vital Signs Vital signs: Vital Signs - 8 hr 08/29/24 11:13 08/29/24 11:14 08/29/24 11:14 Temperature Pulse Rate 51 L 50 L Respiratory Rate Blood Pressure 193/81 H Pulse Oximetry 99 96 Oxygen Delivery Method 08/29/24 11:16 08/29/24 11:30 08/29/24 11:31 Temperature 97.8 F Pulse Rate 50 L 44 L Respiratory Rate 16 12 Blood Pressure 193/81 H 146/67 H Pulse Oximetry 97 97 Oxygen Delivery Method Room Air 08/29/24 11:31 08/29/24 12:00 08/29/24 12:01 Temperature Pulse Rate 45 L 44 L 45 L Respiratory Rate 14 12 12 Blood Pressure Pulse Oximetry 96 97 96 Oxygen Delivery Method 08/29/24 12:01 08/29/24 12:50 08/29/24 12:51 Temperature Pulse Rate 48 L Respiratory Rate Blood Pressure 142/63 H 135/64 Pulse Oximetry Oxygen Delivery Method 08/29/24 12:51 08/29/24 13:00 08/29/24 13:30 Temperature Pulse Rate 49 L 46 L 41 L Respiratory Rate 18 11 L Blood Pressure Pulse Oximetry 98 98 96 Oxygen Delivery Method 08/29/24 13:51 08/29/24 13:51 08/29/24 14:00 Temperature Pulse Rate 40 L 40 L Respiratory Rate 10 L 14 Blood Pressure 142/64 H Pulse Oximetry 96 94 Oxygen Delivery Method 08/29/24 14:30 08/29/24 15:00 Temperature Pulse Rate 39 L 41 L Respiratory Rate 10 L 14 Blood Pressure Pulse Oximetry 97 98 Oxygen Delivery Method MDM - Back Pain/Injury Lab Data 08/29/24 14:05 08/29/24 14:05 Labs: Lab Results 08/29/24 Range/Units 14:05 WBC 8.2 (4.5-11.0) X10^3/uL RBC 4.63 (4.5-5.9) X10^6/uL Hgb 13.7 (13.5-17.5) g/dL Hct 40.0 L (41-53) % MCV 86.3 (80-100) fL MCH 29.7 (26-34) PG MCHC 34.4 (30-36) % RDW 14.3 (11.6-14.8) % Plt Count 148 L (150-400) X10^3/uL Neut % (Auto) 49.7 L (50-75) % Lymph % (Auto) 36.1 (25-40) % Towns % (Auto) 11.0 (3-14) % Eos % (Auto) 2.1 (2-4) % Baso % (Auto) 1.1 (0-2) % Neut # (Auto) 4100 (4278-7126) /uL Lymph # (Auto) 3000 (2643-0349) /uL Towns # (Auto) 900 (0-900) /uL Eos # (Auto) 200 (0-450) /uL Baso # (Auto) 100 (0-100) /uL Sodium 133 L (137-145) mmol/L Potassium 4.5 (3.4-5.1) mmol/L Chloride 100 (98-107) mmol/L Carbon Dioxide 26 (22-32) mmol/L BUN 21 H (9-20) mg/dL Creatinine 0.92 (0.66-1.25) mg/dL Estimated GFR > 60 (>60) mL/min BUN/Creatinine Ratio 22.8 H (6-22) Glucose 109 H (70-99) mg/dL Calcium 8.8 (8.4-10.2) mg/dL Total Bilirubin 0.7 (0.2-1.3) mg/dL AST 30 (17-59) IU/L ALT 23 (<50) IU/L Alkaline Phosphatase 60 (38-126) U/L Total Protein 6.7 (6.3-8.2) g/dL Albumin 3.8 (3.5-5.0) g/dL Globulin 2.9 (1.7-4.1) g/dL Albumin/Globulin Ratio 1.3 (1.0-2.8) Lipase 112 (23-300) U/L Imaging Data CT scan - abdomen/pelvis: Radiologist's Impression: [address] [address] [address] Scan Report Signed Patient: Braydon Olsen MR#: [id number] : 1940 Acct:[id number] Age/Sex: 84 / M Date of Service: 08/29/24 Loc: ED Accession Number: [id number] Procedure: CT abdomen pelvis w con Ordering Provider: Braydon Forbes MD PROCEDURE: CT ABDOMEN PELVIS W CON INDICATIONS: IV contrast only, Abdominal pain/low back pain TECHNIQUE: After the administration of intravenous contrast, axial sections acquired from the lung bases to the pubic symphysis. Coronal and sagittal reformats were performed. For radiation dose reduction, the following was used: automated exposure control, adjustment of mA and/or kV according to patient size. COMPARISON: [facility], CT, CT ABDOMEN PELVIS W CON, 01/26/2023, 15:42. FINDINGS: Image quality: Diagnostic. Lower Chest: No significant findings. ABDOMEN: Liver: Multiple hypoattenuating hepatic foci overall unchanged. Gallbladder: Removed. Biliary ducts: No biliary dilation. Pancreas: No ductal dilation. Spleen: Size is within normal limits. Splenule is noted. Adrenal Glands: No adrenal nodules. Kidneys and Ureters: No hydronephrosis. Unchanged low-attenuation foci. Stomach and Bowel: Normal colonic caliber, without significant wall thickening. Prominent colonic stool without obstruction. Diverticula without inflammatory change. Peritoneum: No abnormal intraperitoneal fluid. No free air. Ventral Wall: No significant ventral hernia. Abdominal Nodes: No retroperitoneal or mesenteric adenopathy by size criteria. Vessels: Aorta and inferior vena cava are normal in size. PELVIS: Pelvic Organs: Unremarkable. Bladder: No bladder wall thickening, accounting for underdistention. Pelvic Nodes: No enlarged lymph nodes. Miscellaneous: Small fat containing inguinal hernias are seen. Bones: No aggressive osseous abnormality. IMPRESSION: No acute intra-abdominal or pelvic process. Diverticulosis. Unchanged hepatic and renal low-attenuation foci likely simple cysts. Dictated by: Pili Curry M.D. on 08/29/2024 at 13:19 Approved by: Pili Curry M.D. on 08/29/2024 at 13:22 [facility] Narrative Medical decision making narrative: Patient brought here by [id number] for complaints of muscle spasm bilateral lumbar muscles for the past 4 weeks. No known injury. No prior history MRI or back surgery. No fever chills. No abdominal pain no chest pain. No numbness or tingling to legs or feet. No saddle paresthesia. Patient has pain with any movement of the lower back. After history and exam, CBC CMP lipase CT abdomen pelvis Toradol Solu-Medrol Valium [facility] Medical records reviewed: No recent visit for this complaint Differential considered: Includes but not limited to aortic dissection kidney stone UTI pyelonephritis muscle spasm lumbar radiculopathy Lab Test results independently reviewed as above. Pertinent findings: WBC 8.2 hemoglobin 13.7 sodium 133 potassium 4.5 Imaging studies independently reviewed: CT abdomen pelvis no acute finding Consultations: None indicated at this time Re-evaluations: 3:33 p.m.. Pain is controlled at this time but still has occasional spasms. But much better than before. Reviewed results with patient and [id number]. He will need outpatient referral by primary care for MRI of the lower back as well as physical therapy. Prescription for baclofen and Medrol Dosepak will be provided. Return precautions reviewed. Reviewed with patient that it is likely degenerative disc disease or pinched nerve causing his muscle spasms. Discussion: Appropriate for discharge home. Exam is reassuring. Laboratory studies and imaging studies reassuring but appropriate for outpatient further workup. No neuro deficits. Pain is controlled. They desire discharge home. Diagnosis: Low back pain Discharge Plan Departure Patient Disposition: Home Clinical Impression: Acute low back pain Qualifiers: Back pain laterality: bilateral Sciatica presence: without sciatica Qualified Code(s): M54.50 - Low back pain, unspecified Instructions: DI for Low Back Pain, DI for Back Spasm Activity Restrictions/Additional Instructions: Your exam and laboratory studies imaging studies are reassuring. You will need outpatient referral from your family doctor for MRI of the your lower back and physical therapy. No driving operating machinery today as you have been given controlled substances/pain medication. Return if worse if any questions or concerns. In his likely you have pinched nerves from the spine going to your muscles causing spasms. Continue steroid pack tomorrow. Prescriptions have been provided for you for muscle relaxers. Prescriptions: New baclofen 20 mg tablet 20 mg PO TID PRN (Reason: pain (scale score 4-6)) Qty: 20 0RF methylprednisolone [Medrol (Jean Marie)] 4 mg tablets,dose pack See Rx Instructions .ROUTE .COMPLEX Qty: 21 0RF Rx Instructions: orally per package directions No Action telmisartan [Micardis] 80 MG tablet 80 mg PO Q DAY Qty: 0 atorvastatin [Lipitor] 10 MG tablet 10 mg PO HS Qty: 0 omeprazole 40 MG capsule,delayed release(DR/EC) 40 mg PO BID Qty: 0 [id number] Tablet 1 tab PO DAILY Qty: 0 amlodipine [Norvasc] 2.5 mg Tablet 2.5 mg PO DAILY cholecalciferol (vitamin D3) [Vitamin D3] 2,000 unit Tablet 2,000 unit PO DAILY amlodipine [Norvasc] 5 mg Tablet 5 mg PO DAILY famotidine [Pepcid] 20 mg Tablet 40 mg PO DAILY tamsulosin [Flomax] 0.4 mg Capsule 0.4 mg PO DAILY metoprolol tartrate 25 mg tablet 25 mg PO PRN PRN (Reason: For atrial fibrillation episode) Qty: 14 0RF Rx Instructions: only takes if has an episode of atrial fib taken 7 years ago, Eliquis 5 mg tablet 5 mg PO BID Referrals: Braydon Sanabria MD [Primary Care Provider] - Stand Alone Forms: Patient Portal/API/Survey
[2024-08-29] MEDS: KETOROLAC 30 MG/ML VIAL 15 MG IV (12:53)
[2024-08-29] MEDS: diazePAM 5 MG TABLET 10 MG PO (12:53)
[2024-08-29 14:14] LABS: Add Manual Diff / Slide Review NO; Basophils Absolute Auto 100 /uL (0-100); Basophils Percent Auto 1.1 % (0-2); Eosinophils Absolute Auto 200 /uL (0-450); Eosinophils Percent Auto 2.1 % (2-4); Hemoglobin 13.7 g/dL (13.5-17.5); Lymphocytes Absolute Auto 3000 /uL (1100-4500); Lymphocytes Percent Auto 36.1 % (25-40); Mean Corpuscular HGB Conc 34.4 % (30-36); Mean Corpuscular Hemoglobin 29.7 PG (26-34); Mean Corpuscular Volume 86.3 fL (80-100); Monocytes Absolute Auto 900 /uL (0-900); Neutrophils Absolute Auto 4100 /uL (1500-7000); Neutrophils Percent Auto 49.7 % (50-75); Platelet Count 148 X10^3/uL (150-400); Red Blood Cell Count 4.63 X10^6/uL (4.5-5.9); Red Cell Distribution Width 14.3 % (11.6-14.8); White Blood Cell Count 8.2 X10^3/uL (4.5-11.0)
[2024-08-29 14:25] LABS: Lipase 112 U/L (23-300)
[2024-08-29 14:26] LABS: Alanine Aminotransferase 23 IU/L (<50); Albumin 3.8 g/dL (3.5-5.0); Albumin Globulin Ratio 1.3 (1.0-2.8); Alkaline Phosphatase 60 U/L (38-126); Aspartate Aminotransferase 30 IU/L (17-59); BUN Creatinine Ratio 22.8 (6-22); Bilirubin Total 0.7 mg/dL (0.2-1.3); Blood Urea Nitrogen 21 mg/dL (9-20); Calcium 8.8 mg/dL (8.4-10.2); Carbon Dioxide 26 mmol/L (22-32); Chloride 100 mmol/L (98-107); Estimated Glomerular Filt Rate > 60 mL/min (>60); Globulin 2.9 g/dL (1.7-4.1); Glucose 109 mg/dL (70-99); HEMOLYSIS 18 (0-50); Potassium 4.5 mmol/L (3.4-5.1); Sodium 133 mmol/L (137-145); Total Protein 6.7 g/dL (6.3-8.2)
[2024-08-29] MEDS: methylPREDNISolone 125 MG/2 ML VIAL IV (15:29)
== END 2024-08-29 15:49 | disposition home or self-care (01) ==
PROVIDERS: Emergency Provider Emergency Medicine; Family Provider Internal Medicine; PCP Internal Medicine
DX: M54.50 Low back pain, unspecified (principal)
CPT/HCPCS: 36415; 74177; 80053; 83690; 85025; 96374; 96375; 99284; J1885; J2919; Q9967

== ENCOUNTER → 2025-01-17 09:12 | Outpatient (CLI) | payer MEDICARE, OTHER, SELFPAY ==
[2019-06-04 05:12] VITALS: BMI 33.7
[2025-01-17 09:45] LABS: Hematocrit 40.4 % (41-53); Hemoglobin 13.6 g/dL (13.5-17.5); Mean Corpuscular HGB Conc 33.7 % (30-36); Mean Corpuscular Hemoglobin 29.2 PG (26-34); Mean Corpuscular Volume 86.8 fL (80-100); Platelet Count 160 X10^3/uL (150-400)
[2025-01-17 10:54] LABS: Blood Urea Nitrogen 17 mg/dL (9-20); Calcium 9.2 mg/dL (8.4-10.2); Carbon Dioxide 27 mmol/L (22-32); Chloride 99 mmol/L (98-107); Cholesterol 161 mg/dL (140-199); Estimated Glomerular Filt Rate > 60 mL/min (>60); Glucose 117 mg/dL (70-99); HDL Cholesterol 36 mg/dL (40-60); HEMOLYSIS < 15 (0-50); Potassium 4.3 mmol/L (3.4-5.1); Sodium 134 mmol/L (137-145); Triglycerides 162 mg/dL (35-150)
== END ==
PROVIDERS: PCP Nurse Practitioner Family; Referring Provider Internal Medicine Cardiovascular Disease; Visit Provider Internal Medicine Cardiovascular Disease
DX: E78.5 Hyperlipidemia, unspecified (principal); I10 Essential (primary) hypertension
CPT/HCPCS: 36415; 80048; 80061; 85027